=== PATIENT | female | born 1975 | race Caucasian/White ===

== ENCOUNTER 2022-10-23 09:14 | Outpatient (CLI) | payer BC, SELFPAY | END 2022-10-23 09:15 | disposition home or self-care (01) | PROVIDERS: PCP Family Medicine; Visit Provider Family Medicine | DX: Z00.00 Encounter for general adult medical examination without abnormal findings (principal); E66.01 Morbid (severe) obesity due to excess calories; R53.83 Other fatigue; R03.0 Elevated blood-pressure reading, without diagnosis of hypertension; R56.9 Unspecified convulsions; Z13.6 Encounter for screening for cardiovascular disorders | CPT/HCPCS: 80053; 80061; 82306; 84443 ==

== ENCOUNTER 2023-01-08 08:25 | Outpatient (CLI) | payer BC, SELFPAY | END 2023-01-08 08:26 | disposition home or self-care (01) | LOC: NFLDREF 15:25 | PROVIDERS: PCP Family Medicine; Referring Provider Family Medicine; Visit Provider Family Medicine | DX: I10 Essential (primary) hypertension (principal) | CPT/HCPCS: 80048 ==

== ENCOUNTER 2023-04-08 08:25 | Outpatient (CLI) | payer BC, SELFPAY | END 2023-04-08 08:26 | disposition home or self-care (01) | LOC: NFLDREF 04-09 11:51 | PROVIDERS: PCP Family Medicine; Referring Provider Family Medicine; Visit Provider Family Medicine | DX: I10 Essential (primary) hypertension (principal) | CPT/HCPCS: 80048 ==

== ENCOUNTER 2023-04-15 07:55 | Outpatient (CLI) | payer BC, SELFPAY ==
--- NOTE | 2023-04-15 08:15 | CRLHL7_ITS ---
For Patients: As a result of the Century Cures Act, medical imaging exams and procedure reports are released immediately into your electronic medical record. You may view this report before your referring provider. If you have questions, please contact your health care provider. BILATERAL SCREENING MAMMOGRAM WITH COMPUTER-AIDED DETECTION AND TOMOSYNTHESIS TECHNIQUE: CC and MLO views were obtained. These mammographic images have been obtained using full-field digital technique. These mammographic images were interpreted with the benefit of computer-aided detection. Breast tomosynthesis was used in this interpretation. COMPARISON FILM: None. This is a baseline study. FINDINGS: The breasts are almost entirely fatty. IMPRESSION: There is no radiographic evidence for malignancy. ASSESSMENT: BI-RADS Category 1: Negative RECOMMENDATION: Routine screening mammogram in 1 year. A lay language report of this examination will be provided to the patient. GURVINDER PERRY M.D. Diagnostic Radiologist [email or web address] AIDAN/faiza Transcribed: 04/17/2023, 6:[address]/Dictated by: Gurvinder Perry MD @ 04/17/2023 11:55:00 AM (Electronically Signed)
== END 2023-04-15 07:56 | disposition home or self-care (01) ==
LOC: MAMMO 07:56
PROVIDERS: PCP Family Medicine; Visit Provider Family Medicine
DX: Z12.31 Encounter for screening mammogram for malignant neoplasm of breast (principal)
CPT/HCPCS: 77063; 77067

== ENCOUNTER 2023-05-12 08:35 | Outpatient (CLI) | payer BC, SELFPAY ==
--- NOTE | 2023-05-12 10:50 | W.ANESCHARGE ---
Anesthesia Charges Start Date/Time Anesthesia Start Date: 05/12/23 Anesthesia Start Time: 10:20 Stop Date/Time Anesthesia Stop Date: 05/12/23 Anesthesia Stop Time: 10:49
== END 2023-05-12 08:36 | disposition home or self-care (01) ==
LOC: OP CLINIC 08:35
PROVIDERS: PCP Family Medicine; Visit Provider Surgery
DX: Z12.11 Encounter for screening for malignant neoplasm of colon (principal); K63.5 Polyp of colon
CPT/HCPCS: 45385; 811; 88305; J2704

== ENCOUNTER 2023-06-23 19:22 | Outpatient (CLI) | payer BC, SELFPAY ==
--- NOTE | 2023-07-01 09:11 | W.PM.SLEEP ---
Sleep Study Details Details Interpreting Provider: Aman Date of Sleep Study: 06/23/23 Sleep Study Details: STUDY TYPE:? Home unattended ? BMI:? 44.9 ORDERING PROVIDER:? Aman INDICATION:? Concerns about sleep apnea ? SLEEP SUMMARY:? Sleep time 517.5 minutes monitored RESPIRATORY SUMMARY:? AHI 4.1, supine 5.3, right lateral 2.3 Low oxygen 83 0.1% of study oxygen less than 90% Snoring 1.4% PERIODIC LIMB MOVEMENTS OF SLEEP:? Not recorded during home study CARDIAC:? range 46-102, mean 64.7 IMPRESSION:? The overall AHI is within normal limits although the patient has mild obstructive sleep apnea in the supine position. RECOMMENDATION: Should verify that the patient slept well during study. Recommend avoidance of supine sleep.
== END 2023-06-23 19:23 | disposition home or self-care (01) ==
LOC: SLEEP 19:23
PROVIDERS: PCP Family Medicine; Visit Provider Otolaryngology
DX: G47.19 Other hypersomnia (principal)
CPT/HCPCS: 95806

== ENCOUNTER 2023-08-26 07:45 | Outpatient (CLI) | payer BC, SELFPAY ==
--- OUTSIDE RECORDS SUMMARY | 2023-08-26 07:47 | XMS_ITS | Referral Summary ---
Author Name Unknown Organization [facility] Address [address] [place] [address] Care Team Providers Care Coal Chemist Name Role Phone Edgar Mina MD Primary Care Provider [phone] Allergies No known active allergies Medications Medication Sig Dispensed Refills Start Date End Date Status FLINTSTONES COMPLETE OR CHEW two daily 0 08/26/2005 Active UNISOM OR 1 TABLET AT BEDTIME NEEDED 0 Active RIBOFLAVIN 50 MG OR CAPS 1/2 tab daily at hs 0 Active TYLENOL 325 MG OR TABS 2 TABLETS EVERY 4 HOURS NEEDED 0 Active SALINE AERO as directed. 0 Active Active Problems Problem Noted Date Diagnosed Date Carpal tunnel syndrome 12/23/2005 Depressive disorder, not elsewhere classified Supervision of other high-risk 006 Overview: Problem list name updated by automated process. Provider to review Vaginitis and vulvovaginitis 09/26/2005 Overview: Problem list name updated by automated process. Provider to review Obesity 09/26/2005 Overview: Problem list name updated by automated process. Provider to review Exercise-induced asthma Overview: Dx as teenager. Never used inhalers. Problem list name updated by automated process. Provider to review Rheumatoid arthritis Overview: Problem list name updated by automated process. Provider to review Migraine Overview: Problem list name updated by automated process. Provider to review Immunizations Name Administration Dates Next Due COVID-19 MONOVALENT 12+ (Pfizer) 10/23/2020,09/05 Social History Tobacco Use Types Packs/Day Years Used Date Smoking Tobacco: Never Alcohol Use Standard Drinks/Week Comments Yes 0 (1 standard drink = 0.6 oz pure alcohol) 2 per week before pg. None since knows pg. Adolescent Education Answer Date Record ed Getting School Help Needed Not on file 04/22 Sex and Gender Information Value Date Recorded Sex Assigned at Not on file Gender Identity Female 09/25/2020 2:29 PM CDT Sexual Orientation Not on file Last Filed Vital Signs Vital Sign Reading Time Taken Comments Blood Pressure 131/91 05/25/2018 2:53 PM ENVIRONMENTAL ANALYST Pulse 103 05/25/2018 11:16 AM ENVIRONMENTAL ANALYST Temperature 36.7 ??C (98.1 ??F) 05/25/2018 11:[address] Respiratory Rate 16 05/25/2018 2:53 PM ENVIRONMENTAL ANALYST Oxygen Saturation 97% 05/25/2018 2:53 PM ENVIRONMENTAL ANALYST Inhaled Oxygen Concentration - - Weight 108.4 kg (239 lb) 01/20/2006 9:00 AM CDT Height 170.2 cm (5' 7) 11/25/2005 8:45 AM CDT Body Mass Index 37.43 11/25/2005 8:45 AM CDT Plan of Treatment Not on file Care Teams Coal Chemist Relationship Specialty Start Date End Date Edgar Mina MD PCP - General Family Medicine - Sports Medicine 05/25/18
--- OUTSIDE RECORDS SUMMARY | 2023-08-26 07:47 | XMS_ITS | Clinical Summary ---
Author Name Unknown Organization [facility] Address [address], [place] [address] Care Team Providers Care Electronics Manufacturer Name Role Phone Irina Callahan MD Primary Care Provider [phone] Source Comments You are receiving this document as you are listed as the primary care provider,follow-up provider, or the patient has been referred to you for consultation.This is in compliance with the Medicare and[facility] EHR Incentive Program,which states Providers who transition their patient to another setting of careor provider of care or refers their patient to another provider of care shouldprovide summary care record for each transition of care or referral. [facility] Medications Medication Sig Dispensed Refills Start Date End Date Status MULTIPLE VITAMIN OR None Entered Act debra ergocalciferol (VITAMIN D, ERGOCALCIFEROL,) 68409 UNIT capsule Take 1 Cap by mouth two times a week. 24 Cap prn 11/05/2011 Active levonorgest-eth estrad 91-Day (SEASONALE) 0.15-0.03 MG tablet Take 1 Tab by mouth daily. 91 Tab 5 03/20/2016 Active cyclobenzaprine (FLEXERIL) 10 MG tablet Take 1 Tab by mouth three times a day as needed for Muscle Spasms. 30 Tab 3 08/13/2016 Active fluticasone (FLONASE) 50 MCG/ACT nasal solution PLACE 2 SPRAYS INTO BOTH NOSTRILS DAILY NEEDED 48 g 3 09/20/2016 Active acetaminophen 500 MG capsuleIndications: Dysmenorrhea Take 1-2 Caps by mouth every 6 hours as needed for Pain. Maximum acetaminophen dose is 4000 mg in 24 hours 10/14/2016 Active Active Problems Problem Noted Date Diagnosed Date Uterus, adenomyosis 09/17/2016 Nasal congestion 03/20/2016 Pelvic pain in female 03/20/2016 Screening for malignant neoplasm of cervix 11/18 Overview: 2010 NILM 2014 NILM, HPV negative Plan: Co-test 11/2019 [facility] Menstrual migraine 11/06/2011 Vitamin D deficiency 08/10/2010 Overview: In the 9 range in 08/2010. PMS (premenstrual syndrome) 08/08/2010 Overview: Anger Obesity 10/18/2008 Resolved Problems Problem Noted Date Diagnosed Date Resolved Date Depression, major, recurrent , in complete remission 11/06/2011 11/11/2014 Major depressive disorder, s raf episode, in remission 10/20/2008 11/06/2011 Overview: [facility] Encounter for supervision of normal in multigravida 07/24/2007 10/18/2008 Immunizations Name Administration Dates Next Due Flu Vac (3+ yrs) 08/08/2010 Influenza IIV4 (Quadrivalent) 0.5mL (13472) 03/07 Tdap 10/18/2008 Family History Medical History Relation Name Comments Anesthesia Reaction Mother Anxiety Mother Cataract Mother Coronary Artery Disease Mother Depression Mother Diabetes, Type II Mother on meds Hypertension Mother Obesity Mother Thyroid Disorder Mother Coronary Artery Disease Maternal Grandfather Cancer, Breast Maternal Grandmother Cancer, Colon Other 1 aunt Cystic Fibrosis Other 2 uncle Cancer, Breast Paternal Grandmother Relation Name Status Comments Father Alive not in contact Mother (Age 67) ?heart Brother 1 Alive half Brother 2 Alive half Maternal Grandfather Maternal Grandmother Other 1 Other 2 Paternal Grandfather Paternal Grandmother Sister Alive half Son 1 Alive Son 2 Alive Social History Tobacco Use Types Packs/Day Years Used Date Smoking Tobacco: Never Smokeless Tobacco: Never Tobacco Cessation:Counseling Given: Yes Alcohol Use Standard Drinks/Week Comments Yes 0 (1 standard drink = 0.6 oz pur e alcohol) social Sex and Gender Information Value Date Recorded Sex Assigned at Not on file Gender Identity Not on file Sexual Orientation Not on file Last Filed Vital Signs Vital Sign Reading Time Taken Comments Blood Pressure 131/89 10/14/2016 10:49 AM CDT Pulse 79 10/14/2016 10:49 AM CDT Temperature 37.3 ??C (99.1 ??F) 03/20/2016 2:48 PM CD T Respiratory Rate 16 07/31/2016 9:16 AM DISPATCHER AUTOMOBILE RENTAL Oxygen Saturation - - Inhaled Oxygen Concentration - - Weight 113 kg (249 lb 3.2 oz) 10/14/2016 10:49 A M CDT Height 169.5 cm (5' 6.75) 03/20/2016 2:48 PM CD T Body Mass Index 39.32 03/20/2016 2:48 PM CDT Plan of Treatment Health Maintenance Due Date Last Done Comments Colon Cancer Screening Plan Due 1975 Hep C Screening (Preventive Services) 1975 Mammogram 12/06/2015 12/05/2014 Adult Preventive Visit 03/20/2017 6, 11/11/2014, 11/01/2011, Additional history exists Cholesterol 2018 11/01/2011, 08/08/2010 DTaP/Tdap/Td (2 - Tdap) 10/18/2018 10/18/2008 Cervical Cancer Screening 11/12/20192014, 08/08/2010, 02/18/2007 Zoster/Shingles (1 of 2) 2023 COVID-19 Vaccine ( season) 2023 10/02/2020 Influenza (#1) 2023 04/15/2019, 08/2017, 03/19/2018, Additional history exists HIV Screening (Preventive Services) Completed 02/18/2007 HepA Aged Out No longer eligi ble based on patient's age to complete this topic Hib Aged Out No longer eligi ble based on patient's age to complete this topic IPV (Polio) Aged Out No longer eligi ble based on patient's age to complete this topic MCV4 Aged Out No longer eligi ble based on patient's age to complete this topic Pneumococcal Aged Out No longer eligi ble based on patient's age to complete this topic Procedures Procedure Name Priority Date/Time Associated Diagnosis Comments MM MAMMOGRAM SCREENING BILAT W CAD Routine 12/05/2014 1:45 PM CDT Screening for breast cancer PAP TEST, ROUTINE Routine 11/11/2014 9:4 1 AM CDT Screening for cervical cancer LIPID PANEL & DIRECT LDL (IF NEEDED) Routine 11/01/2011 8:48 AM CDT Screening for lipoid disorders HIV ANTIBODY Routine 02/18/2007 Supervision of Normal from Last 3 Months or Most Recently Relevant to Health Maintenance Results * MAMMOGRAM SCREENING BILAT (12/05/2014 1:45 PM CDT) Anatomical Region Laterality Modality Breast Bilateral Mammography Narrative 12/06/2014 3:15 PM CDT BILATERAL FULL FIELD DIGITAL SCREENING MAMMOGRAM Performed on 12/05/2014 Comparison: None. Baseline. Findings: The breasts have scattered fibroglandular densities. There is no radiographic evidence of malignancy.This study was evaluated with the assistance of Computer-Aided Detection. ??Repeat routine screening mammogram in one year is recommended. ACR BI-RADS Category 1: Negative Irina Callahan MD RAD NEHA * PAP TEST, ROUTINE (11/11/2014 9:41 AM CDT) Cytology, Pap (NOTE) Specialty Person Cytology Report Patient Name: HARI QUINTANILLA Taken: 11/11/2014 Received: 11/14/2014 Reported: 11/17/2014 Physician(s): IRINA CALLAHAN ([id number]) ?Source of Specimen Pap Test, Routine Cervical/Endocervi jeremy: ?Specimen Adequacy ?Satisfactory for evaluation. ??Endocervical component present. ? Final Cytologic Interpretation/Res ult NEGATIVE FOR INTRAEPITHELIAL LESION OR MALIGNANCY (NILM) ?? Electronically Signed Out By OFELIA Davila (ASCP) Zenobia Templeton, ??CT (ASCP) OFELIA Davila (ASCP) ? Pap Smear History Date of Last Menstrual Period: No LMP recorded ?? Microscopic Description Microscopic examination is performed. [facility] Department of Pathology [address] [place] [address] ??[id number] [facility] 11/11/2014 9:41 AM CDT 11/14/2014 7:25 PM CDT Irina Callahan MD LAB_1 Performing Organization Address City/[facility]/ZIP Co de Phone Number [facility] [phone] * (ABNORMAL) LIPID PANEL AND DIRECT LDL(IF NEEDED) (11/01/2011 8:48 AM CDT) Cholesterol 204(H) 0 - 199 mg/dl [facility] Triglyceride 155(H) 0 - 149 mg/dl COUNTS INCLUDE [facility] AT [facility] HDL 47 >40 mg/dl COUNTS INCLUDE 234 [facility] AT THE [facility] LDL, Calc. 126 0 - 129 mg/dl COUNTS INCLUDE 234 [facility] AT THE [facility] Non HDL Chol, Calc 157 mg/dl COUNTS INCLUDE 234 [facility] AT THE [facility] Comment:Non HDLC goal is 30 mg/dl above the patient's desired LDLC goal. Hours Fasting 12 hours COUNTS INCLUDE 234 [facility] AT [facility] 11/01/2011 8:48 AM CDT 11/01/2011 8:53 AM CDT Irina Callahan MD LAB_1 Performing Organization Address [facility] de Phone Number COUNTS INCLUDE 234 B[facility]S AT THE [facility] [address] [id number] * HIV ANTIBODY (02/18/2007) HIV 1/2 Antibody Non-Reacti ve Comment:[facility] 02/18/2007 Irina Callahan MD LAB_1 from Last 3 Months or Most Recently Relevant to Health Maintenance Care Teams Electronics Manufacturer Relationship Specialty Start Date End Date Irina Callahan MD [address] [place] [address] PCP - General 07/17/07
--- OUTSIDE RECORDS SUMMARY | 2023-08-26 07:47 | XMS_ITS | Encounter Summary ---
Author Name Unknown Organization [place] [facility] Address [address] [place] [address] Care Team Providers Care Pad Assembler Name Role Phone Edgar Mina MD Primary Care Provider [phone] Encounter Details Date Type Department Care Team (Late st Contact Info) Description 10/24/2020 Documentation Only INTERFACED REPORT Unknown, Provider Social History Tobacco Use Types Packs/Day Years Used Date Smoking Tobacco: Never Alcohol Use Standard Drinks/Week Comments Yes 0 (1 standard drink = 0.6 oz pure alcohol) 2 per week before pg. None since knows pg. Comments Yes Sex and Gender Information Value Date Recorded Sex Assigned at Not on file Gender Identity Female 09/25/2020 2:29 PM CDT Sexual Orientation Not on file documented as of this encounter Plan of Treatment Not on file documented as of this encounter Visit Diagnoses Not on filedocumented in this encounter Care Teams Pad Assembler Relationship Specialty Start Date End Date Edgar Mina MD PCP - General Family Medicine - Sports Medicine 05/25/18 documented as of this encounter
--- OUTSIDE RECORDS SUMMARY | 2023-08-26 07:47 | XMS_ITS | Encounter Summary ---
Author Name Unknown Organization [facility] Address [address] [place] [address] Care Team Providers Care Circus Performer Name Role Phone Edgar Mina MD Primary Care Provider [phone] Encounter Details Date Type Department Care Team (Late st Contact Info) Description 10/03/2020 Documentation Only INTERFACED REPORT Unknown, Provider Social [...] on filedocumented in this encounter Care Teams Circus Performer Relationship Specialty Start Date End Date Edgar Mina MD PCP - General Family Medicine - Sports Medicine 05/25/18 documented as of this encounter
--- OUTSIDE RECORDS SUMMARY | 2023-08-26 07:47 | XMS_ITS | Encounter Summary ---
Author Name Unknown Organization [facility] Address [address] [place] [address] Care Team Providers Care Machine Maintenance Repairer Name Role Phone Irina Callahan MD Primary Care Provider [phone] Encounter Details Date Type Department Care Team (Late st Contact Info) Description 11/05/2016 Scanned History External to [facility] Transferred Record, Provider TRANSFERRED RECORDS Social History Tobacco Use Types Packs/Day Years Used Date Smoking Tobacco: Never Smokeless Tobacco: Never Alcohol Use Standard Drinks/Week Comments Yes 0 (1 standard drink = 0.6 oz pur e alcohol) social Sex and Gender Information Value Date Recorded Sex Assigned at Not on file Gender Identity Not on file Sexual Orientation Not on file documented as of this encounter Plan of Treatment Not on file documented as of this encounter Visit Diagnoses Not on filedocumented in this encounter Additional Health Concerns Infection Onset Date Last Indicated Resolved Time R/O COVID19 12/15/2019 12/15/2019 12/16/2019 9:34 AM CDT documented as of this encounter Care Teams Machine Maintenance Repairer Relationship Specialty Start Date End Date Irina Callahan MD [address] [place] [address] PCP - General 07/17/07 documented as of this encounter
--- OUTSIDE RECORDS SUMMARY | 2023-08-26 07:47 | XMS_ITS | Clinical Summary ---
Author Name Unknown Organization [facility] [place] Address [address] [place] [address] Care Team Providers Care Pressure Sealer And Tester Name Role Phone Edgar Mina MD Primary Care Provider [phone] Allergies No known active allergies Medications Medication [...] Next Due COVID-19 MONOVALENT 12+ (Pfizer) 10/23/2020,09/05 Family History Medical History Relation Comments C.A.D. Maternal Grandfather of [place] Cardiovascular Maternal Grandfather Heart Disease Maternal Grandfather of [place] Depression Maternal Grandmother Alcohol/Drug Maternal Uncle ETOH Anesthesia Reaction Mother Complication s after cataract surgery with anesthesia Arthritis Mother Rheumatoid arthr itis. Depression Mother Has been on Proz ac in the past. Diabetes Mother adult onset Obesity Mother Allergies Paternal Grandmother Relation Status Comments Brother 1 Alive Half-brother Brother 2 Alive Half-brother Father Alive Maternal Grandfather (Age 54) [place] Maternal Grandmother (Age 80's) care home for 10 years Maternal Uncle Mother Alive Paternal Grandmother Sister Alive Half-sister Social History Tobacco Use Types Packs/Day Years [...] Comments Blood Pressure 131/91 05/25/2018 2:53 PM MEDICAL GENETICIST Pulse 103 05/25/2018 11:16 AM MEDICAL GENETICIST Temperature 36.7 ??C (98.1 ??F) 05/25/2018 11:[address] Respiratory Rate 16 05/25/2018 2:53 PM MEDICAL GENETICIST Oxygen Saturation 97% 05/25/2018 2:53 PM MEDICAL GENETICIST Inhaled Oxygen Concentration - - Weight 108.4 kg (239 lb) 01/20/2006 9:00 AM CDT Height 170.2 cm (5' 7) 11/25/2005 8:45 AM CDT Body Mass Index 37.43 11/25/2005 8:45 AM CDT Plan of Treatment Health Maintenance Due Date Last Done Comments ADVANCE CARE PLANNING 1975 ANNUAL REVIEW OF HM ORDERS 1973 ASTHMA ACTION PLAN [address] ASTH[address] COLONOGRAPHY 1973 FIT 1973 FLEX SIG 1973 HEPATITIS B IMMUNIZATION (1 of 3 - 3-dose series) 1973 MAMMO SCREENING 1973 YEARLY PREVENTIVE VISIT 1973 sDNA (Cologuard) 1973 COLONOSCOPY 1983 COLORECTAL CANCER SCREENING 1983 HEPATITIS C SCREENING 1991 DTAP/TDAP/TD IMMUNIZATION (1 - Tdap) 1998 PAP 09/17/2008 09/17/2005 LIPID 2013 GLUCOSE 05/25/2021 05/25/2018, 03/23/2007 ZOSTER IMMUNIZATION (1 of 2) 2023 COVID-19 Vaccine (3 - 2022- season) 2023 10/23/2020, 10/02/2020 INFLUENZA VACCINE (#1) 2023 8, 03/20/2016, 03/10/2015, Additional history exists PHQ-2 (once per calendar year) 2023 HIV SCREENING Completed 08/26/2005 HPV IMMUNIZATION Aged Out No longer e ligible based on patient's age to complete this topic IPV IMMUNIZATION Aged Out No longer e ligible based on patient's age to complete this topic MENINGITIS IMMUNIZATION Aged Out No l onger eligible based on patient's age to complete this topic Pneumococcal Vaccine: Pediatrics (0 to 5 Years) and At-Risk Patients (6 to 64 Years) Aged Out No longer eligible based on patient's age to complete this topic RSV MONOCLONAL ANTIBODY Aged Out No l onger eligible based on patient's age to complete this topic Care Teams Pressure Sealer And Tester Relationship Specialty Start Date End Date Edgar Mina MD PCP - General Family Medicine - Sports Medicine 05/25/18
--- OUTSIDE RECORDS SUMMARY | 2023-08-26 07:47 | XMS_ITS | Clinical Summary ---
Author Name Unknown Organization [facility] Address [place], [place] [address] Care Team Providers Care Bottom Polisher Name Role Phone Edgar Mina MD Primary Care Provider [phone] Allergies No known active allergies Medications Medication Sig Dispensed Refills Start Date End Date Status fluticasone, 50 mcg per actuation, nasal (FLONASE) 50 mcg/actuation nasal spray INHALE 1 SPRAY INTO EACH NOSTRIL ONCE DAILY 1 Bottle 0 11/16/2011 Active meclizine (ANTIVERT) 25 mg tabletIndications:Dizzi ness,Vertigo Take 1 tablet by mouth 3 times daily if needed. 30 tablet 0 05/19/2018 Active ondansetron (ZOFRAN ODT) 4 mg disintegrating tabletIndications:Nause a Place 1 tablet on the tongue every 8 hours if needed for Nausea/Vomiting . 20 tablet 2 05/19/2018 Active Active Problems Problem Noted Date Diagnosed Date BPPV (benign paroxysmal positional vertigo) 12/07 Overview: Saw ENT December 2018: Supervision of other normal 03/30/2007 Immunizations Name Administration Dates Next Due Influenza, IIV3 (Age >=3 years) 08/08/2010,05/13 Influenza, IIV4 03/20/2016,03/10/2015 Influenza,CCIIV4 PRESERV FREE 03/19/2018 Tdap 10/18/2008 Family History Medical History Relation Name Comments Heart Disease Maternal Grandfather Stroke Maternal Grandfather Arthritis Maternal Grandmother Asthma Mother Diabetes Mother Relation Name Status Comments Father Other Maternal Grandfather Maternal Grandmother Mother Alive Paternal Grandfather Paternal Grandmother Social History Tobacco Use Types Packs/Day Years Used Date Smoking Tobacco: Never Smokeless Tobacco: Never Comments:Pt's partner has re cently quit smoking. Alcohol Use Standard Drinks/Week Comments No 0 (1 standard drink = 0.6 oz pur e alcohol) Sex and Gender Information Value Date Recorded Sex Assigned at Not on file Gender Identity Not on file Sexual Orientation Not on file Obstetrics History Para Term AB IAB SAB Ectopic Multiple Livin g Live Births 1 1 1 0 0 0 0 0 1 1 Date Outcome GA Total Labor Labor/2nd/3rd Weight Sex Delivery Anes PTL Jessie A1 A5 Name Cl in 04/01 Term 38w 0d 14h 00m/ 3.54 kg (7 lb 13 oz) M Vag Aster ng Freedom Comments:Post I nfection Last Filed Vital Signs Vital Sign Reading Time Taken Comments Blood Pressure 124/83 05/19/2018 2:41 PM FOUNTAIN WORKER Pulse 101 05/19/2018 2:41 PM FOUNTAIN WORKER Temperature 37.6 ??C (99.6 ??F) 05/19/2018 2:41 PM CS T Respiratory Rate 24 11/01/2010 9:18 AM CDT Oxygen Saturation 99% 05/19/2018 2:41 PM FOUNTAIN WORKER Inhaled Oxygen Concentration - - Weight 114.4 kg (252 lb 3.2 oz) 05/19/2018 2:41 PM FOUNTAIN WORKER Height 169 cm (5' 6.54) 05/19/2018 2:41 PM FOUNTAIN WORKER Body Mass Index 40.05 05/19/2018 2:41 PM FOUNTAIN WORKER Plan of Treatment Health Maintenance Due Date Last Done Comments Hepatitis C screening for age 18-79 1991 Pap test for age 21-65 02/18/2010 02/18/2007 Colonoscopy through age 75 2018 Lipids for age 45-75 2018 Mammogram for age 45-75 2018 Depression screening for age 12+ 06/25/2018 06/25/2017, 09/05/2015 Tetanus booster 10/18/2018 10/18/2008 BMI (ht and wt on same day) for age 18+ 05/19/2019 05/19/2018, 06/25/2017, 09/05/2015 Zoster (shingles) series for age 50+ (1 of 2) 2023 COVID-19 vaccine series (3 - 2023-24 season) 2023 10/23/2020, 10/02/2020 Influenza for age 50-64 03/07/2023 03/19/20 18, 03/20/2016, 03/10/2015, Additional history exists HIV for age 15-65 Completed 02/18/2007 Tdap Completed 10/18/2008 Pneumococcal series for age 6-64 Aged Out No longer eligible based on patient's age to complete this topic Care Teams Bottom Polisher Relationship Specialty Start Date End Date Edgar Mina MD PCP - General 04/13/09
--- NOTE | 2023-08-26 08:00 | CT_ITS ---
Final Report Patient: HARI DOYLE Facility:?[facility] Patient ID:?[id number] Site Patient ID:?[id number]. Site :?[id number] Study:?CT Sinus WITHOUT-08/26/2023 8:13:47 AM Ordering Physician:?RITESH Final Report: Indication: CHRONIC SINUSITIS Technique: Performed without IV contrast Comparison: None available Findings: Frontal sinuses: Normal right frontal sinus. 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 Ethmoid sinuses: Clear. Maxillary sinuses: Minimal mucosal thickening is present within the left maxillary sinus. Clear right maxillary sinus. The maxillary sinus drainage pathways are patent on both sides. Sphenoid sinuses: Clear, including both sphenoethmoidal recesses. Nasal Cavity: Leftward curvature of the nasal septum. Atrophied nasal turbinate mucosa. No TMJ abnormalities identified. The visualized portions of the orbits, intracranial contents and upper soft tissue neck are grossly negative. Impression: 1. Minimal left maxillary sinus disease. 2. Patency of the sinus drainage pathways. 3. Atrophied nasal turbinate mucosa. No nasal polyps. 4. Leftward curvature nasal septum. Please note that all CT scans at this facility use dose modulation, iterative reconstruction, and/or weight-based dosing when appropriate to reduce radiation dose to as low as reasonably achievable. Dictated by Gurvinder Escobar MD @ 08/26/2023 8:31:10 AM (Electronic Signature)
== END 2023-08-26 07:46 | disposition home or self-care (01) ==
PROVIDERS: PCP Family Medicine; Visit Provider Otolaryngology
DX: J32.9 Chronic sinusitis, unspecified (principal); J32.0 Chronic maxillary sinusitis; J34.2 Deviated nasal septum
CPT/HCPCS: 70486

== ENCOUNTER 2023-12-29 07:22 | Outpatient (CLI) | payer BC, SELFPAY ==
--- OUTSIDE RECORDS SUMMARY | 2023-12-31 04:38 | XMS_ITS | Referral Summary ---
Author Organization [facility] Address [address] [place] [address] Care Team Providers Care Contract Recruiter Name Role Phone Edgar Mina MD Primary Care Provider [phone] Allergies No known active allergies Medications Medication Sig Dispensed Refills Start Date End Date Status FLINTSTONES COMPLETE OR CHEW two daily 08/26/2005 Active UNISOM OR 1 TABLET AT BEDTIME NEEDED Active RIBOFLAVIN 50 MG OR CAPS 1/2 tab daily at hs Active TYLENOL 325 MG OR TABS 2 TABLETS EVERY 4 HOURS NEEDED Active SALINE AERO as directed. Active Active Problems Problem Noted Date Diagnosed [...] Administration Dates Next Due COVID-19 MONOVALENT 12+ ([employer] 10/23/2020,09/05 Social History Tobacco Use Types Packs/Day [...] Comments Blood Pressure 131/91 05/25/2018 2:53 PM PEARL MAKER Pulse 103 05/25/2018 11:16 AM PEARL MAKER Temperature 36.7 ??C (98.1 ??F) 05/25/2018 11:[address] Respiratory Rate 16 05/25/2018 2:53 PM PEARL MAKER Oxygen Saturation 97% 05/25/2018 2:53 PM PEARL MAKER Inhaled Oxygen Concentration - - Weight 108.4 kg (239 lb) 01/20/2006 9:00 AM CDT Height 170.2 cm (5' 7) 11/25/2005 8:45 AM CDT Body Mass Index 37.43 11/25/2005 8:45 AM CDT Plan of Treatment Not on file Procedures Procedure Name Priority Date/Time Associated Diagnosis Comments BASIC METABOLIC PANEL STAT 05/25/2018 11:19 AM PEARL MAKER HCL GLUCOSE; 1 HR POST Routine 01/14/2006 9:45 AM CDT Supervis Other Normal Preg TRIPLE SCREEN Routine 10/31/2005 8:32 AM CDT Suprf High Risk Nec HCL PAP THIN LAYER SCREEN Routine 09/17/2005 12:00 AM PEARL MAKER Suprf High Risk Nec HCL HIV 1 & 2 ANTIBODY Routine 08/26/2005 9:22 AM PEARL MAKER Supervis Normal 1st Preg from Last 3 Months or Most Recently Relevant to Health Maintenance Results * Basic metabolic panel (05/25/2018 11:19 AM PEARL MAKER) Sodium 137 133 - 144 mmol/L 05/25/2018 11:45 AM [facility] Potassium 4.2 3.4 - 5.3 mmol/L 05/25/2018 11:45 AM [facility] Chloride 105 94 - 109 mmol/L 05/25/2018 11:45 AM [facility] Carbon Dioxide 27 20 - 32 mmol/L 05/25/2018 11:45 AM [facility] Anion Gap 5 3 - 14 mmol/L 05/25/2018 11:45 AM [facility] Glucose 95 70 - 99 mg/dL 05/25/2018 11:45 AM [facility] Urea Nitrogen 17 7 - 30 mg/dL 05/25/2018 11:45 AM [facility] Creatinine 0.82 0.52 - 1.04 mg/dL 05/25/2018 11:45 AM [facility] GFR Estimate 75 >60 mL/min/1.7 m2 05/25/2018 11:45 AM [facility] Comment:Non GFR Calc GFR Estimate If Black >90 >60 mL/min/1.7 m2 05/25/2018 11:45 AM [facility] Comment: GFR Calc Calcium 9.1 8.5 - 10.1 mg/dL 05/25/2018 11:45 AM [facility] Blood specimen (specimen) 05/25/2018 11:19 AM PEARL MAKER 05/25/2018 11:20 AM PEARL MAKER Aarti Chua MD LAB - BLOOD [facility] [address] [phone] * GLUCOSE; 1 HR POST (01/14/2006 9:45 AM CDT) Glu Gest Screen 1hr 50g 128 60 - 140 mg/dL [facility] 01/14/2006 9:45 AM CDT 01/14/2006 9:47 AM CDT Latrice Rodriguez MD LABORATORY [facility] * TRIPLE SCREEN (10/31/2005 8:32 AM CDT) Pt Date of 2006 [facility] Due Date [facility]/20/2006 [facility] Dating Method [facility] Last Mens Period 07/14/2005 [facility] Twins NO [facility] Race of Mother [facility]abetic at Conception NO [facility] Fam History Of NTD NO [facility] Doctor's Name CEM RODRIGUEZ [facility] Alpha Feto Protein 30 [facility] Comment:Unit: ng/mL MoM for AFP 1.43 [facility] BHCG 67430 [facility] Comment:Unit: IU/L MoM For HCG 0.96 [facility] Estriol 0.89 [facility] Comment:Unit: ng/mL MoM uE3 1.27 [facility] AFP Interpretation NORMAL (Note) Maternal Serum AFP/hCG/uE3 (Triple) Screen ?NORMAL SCREEN Risks ? Pre-test ?Post-test ? (Cutoff) Open NTD ?1 in 900 ?1 in 4300 Down Syndrome ?? 1 in 430 ?1 in 3400 ? (1 in 190) Trisomy 18 ?1 in 1700 ?<1 in 59719 ?(1 in 100) Assuming the patient information listed is correct, this maternal serum screen is within normal limits. ??The interpretation is based on maternal age, gestational age, maternal weight, the presence or absence of insulin requiring maternal diabetes, maternal race, and number of fetuses, if known. This test is performed pursuant to a licensing agreement with [employer]. [facility] Specimen Iteration First [facility] Maternal Age 33.2 ISSA [facility] Comment:Unit: yr Dating LNMP [facility] Estimated Due Date [facility] Gest Age Exact 15.57 [facility] Comment:Unit: Weeks Patient Weight [facility] Comment:Unit: lb Insulin Diabetic No [facility] [place] Fam History of NTD No [facility] Maternal Race WHITE [facility] Num of Fetuses 1.0 (Note) The above 17 tests were performed at: [employer], [address] [place] [address] ??[id number] ??[phone] ??[email or web address] [facility] 10/31/2005 8:32 AM CDT 10/31/2005 8:35 AM CDT Latrice Rodriguez MD LABORATORY [facility] * Pap Smear [G0123.000] (09/17/2005 12:00 AM PEARL MAKER) PAP RAHUL Del Toro Report Patient Name: HARI OLIVARES MR#: [id number] Specimen #: [id number] Collected: 09/17/2005 Received: 09/17/2005 Reported: 09/19/2005 11:13 Ordering Phy(s): LATRICE RODRIGUEZ SPECIMEN/STAIN PROCESS: Pap thin layer prep screening ([employer]) ? Pap-Cyto x 1, Reflex HPV x 1 SOURCE: Cervical, endocervical Pap thin layer prep screening ([employer]) SPECIMEN ADEQUACY: Satisfactory for evaluation. -Transitional zone component absent. CYTOLOGIC INTERPRETATION: Negative for Intraepithelial Lesion or Malignancy ? Organism(s): -Fungal organisms morphologically consistent with Kristel spp. Electronically signed out by: OFELIA Chandler (ASCP) Processed and screened at [facility] CLINICAL HISTORY: LMP: 07/14/05 , TESTING LAB LOCATION: [facility], [address] [place] [address] ??[phone] COLLECTION SITE: Client: ??[facility] Location: ZMFP (P) COPATH 09/17/2005 09/17/2005 3:0 8 PM PEARL MAKER Latrice Rodriguez MD LABORATORY COPATH * HIV-1/HIV-2 AB, EIA, W/WB RFLX [41258.000] (08/26/2005 9:22 AM PEARL MAKER) HIV 1&2 Antibody Negative NEG [facility] 08/26/2005 9:22 AM PEARL MAKER 08/26/2005 9:27 AM PEARL MAKER Latrice Rodriguez MD LABORATORY [facility] from Last 3 Months or Most Recently Relevant to Health Maintenance Care Teams Contract Recruiter Relationship Specialty Start Date End Date Edgar Mina MD PCP - General Family Medicine - Sports Medicine 05/25/18
--- OUTSIDE RECORDS SUMMARY | 2023-12-31 04:38 | XMS_ITS | Encounter Summary ---
Author Organization [facility] Address [address] [place] [address] Care Team Providers Care Twine Winder Name Role Phone Edgar Mina MD Primary Care Provider Encounter Details Date Type Department Care Team [...] on filedocumented in this encounter Care Teams Twine Winder Relationship Specialty Start Date End Date Edgar Mina MD PCP - General Family Medicine - Sports Medicine 05/25/18 documented as of this encounter
--- OUTSIDE RECORDS SUMMARY | 2023-12-31 04:38 | XMS_ITS | Clinical Summary ---
Author Organization [facility] Address [address], [place] [address] Care Team Providers Care Representative Name Role Phone Irina Callahan MD Primary Care Provider Source Comments You are receiving this document as you are listed as the primary care provider,follow-up provider, or the patient has been referred to you for consultation.This is in compliance with the Medicare andMedicaid EHR Incentive Program,which states Providers who transition their patient to another setting of careor provider of care or refers their patient to another provider of care shouldprovide summary care record for each transition of care or referral. [facility] Medications Medication Sig Dispensed Refills Start Date End Date Status MULTIPLE VITAMIN OR None Entered Act debra ergocalciferol (VITAMIN D, ERGOCALCIFEROL,) 19588 UNIT capsule Take 1 Cap by mouth [...] neoplasm of cervix 11/18 Overview: 2010 NILM 2015 NILM, HPV negative Plan: [facility] [...] (3+ yrs) 08/08/2010 Influenza IIV4 (Quadrivalent) 0.5mL (04978) 03/07 Tdap 10/18/2008 Family History Medical History [...] T Respiratory Rate 16 07/31/2016 9:16 AM BOW STRING MAKER Oxygen Saturation - - Inhaled Oxygen Concentration [...] COVID-19 Vaccine ( season) 2023 10/02/2020 Influenza (Season Ended) 2024 019, 04/07/2018, 03/19/2018, Additional history exists HIV Screening (Preventive [...] (11/11/2014 9:41 AM CDT) Cytology, Pap (NOTE) Fire Control System Installer Cytology Report Patient Name: HARI QUINTANILLA Taken: 11/11/2014 Received: 11/14/2014 Reported: 11/17/2014 Physician(s): IRINA CALLAHAN ([id number]) ?Source of Specimen Pap Test, Routine Cervical/Endocervi jeremy: ?Specimen Adequacy ?Satisfactory for evaluation. ??Endocervical component present. ? Final Cytologic Interpretation/Res ult NEGATIVE FOR INTRAEPITHELIAL LESION OR MALIGNANCY (NILM) ?? Electronically Signed Out By OFELIA Davila (ASCP) Zenobia Templeton, ??CT (ASCP) OFELIA Davila (ASCP) ? Pap Smear History Date of Last Menstrual Period: No LMP recorded ?? Microscopic Description Microscopic examination is performed. [facility] Department of Pathology [address] [place] [address] ??[phone] [facility] 11/11/2014 9:41 AM CDT 11/14/2014 7:25 PM CDT Irina Callahan MD LAB_1 Performing Organization Address City/[facility]/ZIP Co de Phone Number [facility] [phone] * (ABNORMAL) LIPID PANEL AND DIRECT LDL(IF NEEDED) (11/01/2011 8:48 AM CDT) Cholesterol 204(H) 0 - 199 mg/dl [facility] Triglyceride 155(H) 0 - 149 mg/dl [facility] HDL 47 >40 mg/dl [facility] LDL, Calc. 126 0 - 129 mg/dl [facility] Non HDL Chol, Calc 157 mg/dl [facility] Comment:Non HDLC goal is 30 mg/dl above the patient's desired LDLC goal. Hours Fasting 12 hours [facility] 11/01/2011 8:48 AM CDT 11/01/2011 8:53 AM CDT Irina Callahan MD LAB_1 Performing Organization Address [facility] de Phone Number [facility] [address] [phone] * HIV ANTIBODY (02/18/2007) HIV 1/2 Antibody Non-Reacti ve Comment:[facility] 02/18/2007 Irina Callahan MD LAB_1 from Last 3 Months or Most Recently Relevant to Health Maintenance Care Teams Representative Relationship Specialty Start Date End Date Irina Callahan MD [address] [place] [address] PCP - General 07/17/07
--- OUTSIDE RECORDS SUMMARY | 2023-12-31 04:38 | XMS_ITS | Encounter Summary ---
Author Organization [facility] Address [address] [place] [address] Care Team Providers Care Apartment Locator Name Role Phone Edgar Mina MD Primary Care Provider [phone] Encounter Details Date Type Department Care Team [...] on filedocumented in this encounter Care Teams Apartment Locator Relationship Specialty Start Date End Date Edgar Mina MD PCP - General Family Medicine - Sports Medicine 05/25/18 documented as of this encounter
--- OUTSIDE RECORDS SUMMARY | 2023-12-31 04:38 | XMS_ITS | Clinical Summary ---
Author Organization [facility] Address [address] [place] [address] Care Team Providers Care Clothing Patternmaker Name Role Phone Edgar Mina MD Primary Care Provider [phone] Allergies No known active allergies Medications Medication [...] Administration Dates Next Due COVID-19 MONOVALENT 12+ ([employer]) 10/23/2020,09/05 Family History Medical History Relation Comments C.A.D. Maternal Grandfather of CT Cardiovascular Maternal Grandfather Heart Disease Maternal Grandfather of CT Depression Maternal Grandmother Alcohol/Drug Maternal Uncle ETOH Anesthesia Reaction Mother Complication s after cataract surgery with anesthesia Arthritis Mother Rheumatoid arthr itis. Depression Mother Has been on Proz ac in the past. Diabetes Mother adult onset Obesity Mother Allergies Paternal Grandmother Relation Status Comments Brother 1 Alive Half-brother Brother 2 Alive Half-brother Father Alive Maternal Grandfather (Age 54) [place] Maternal Grandmother (Age 80's) skilled nursing for 10 years Maternal Uncle Mother Alive [...] Comments Blood Pressure 131/91 05/25/2018 2:53 PM OFFICE ASSISTANT Pulse 103 05/25/2018 11:16 AM OFFICE ASSISTANT Temperature 36.7 ??C (98.1 ??F) 05/25/2018 11:[address] Respiratory Rate 16 05/25/2018 2:53 PM OFFICE ASSISTANT Oxygen Saturation 97% 05/25/2018 2:53 PM OFFICE ASSISTANT Inhaled Oxygen Concentration - - Weight 108.4 kg (239 lb) 01/20/2006 9:00 AM CDT Height 170.2 cm (5' 7) 11/25/2005 8:45 AM CDT Body Mass Index 37.43 11/25/2005 8:45 AM CDT Plan of Treatment Health Maintenance Due Date Last Done Comments ADVANCE CARE PLANNING 1975 ANNUAL REVIEW OF HM ORDERS [address] CT COLONOGRAPHY 1973 FIT 1973 FLEX SIG 1975 MAMMO SCREENING 1973 YEARLY PREVENTIVE VISIT 1973 sDNA (Cologuard) 1973 COLONOSCOPY 1983 COLORECTAL CANCER SCREENING 1983 HEPATITIS C SCREENING 1991 HEPATITIS B IMMUNIZATION (1 of 3 - 19+ 3-dose series) 01/17/1992 DTAP/TDAP/TD IMMUNIZATION (1 - Tdap) 1998 PAP 09/17/2008 09/17/2005 LIPID 2013 GLUCOSE 05/25/2021 05/25/2018, 03/23/2007 ZOSTER IMMUNIZATION (1 of 2) 2023 COVID-19 Vaccine (3 - season) 2023 10/23/2020, 10/02/2020 PHQ-2 (once per calendar year) 2023 INFLUENZA VACCINE (Season Ended) 2024 03/19/2018, 03/20/2016, 03/10/2015, Additional history exists HIV SCREENING Completed 08/26/2005 HPV IMMUNIZATION Aged [...] BASIC METABOLIC PANEL STAT 05/25/2018 11:19 AM OFFICE ASSISTANT HCL GLUCOSE; 1 HR POST Routine 01/14/2006 9:45 AM CDT Supervis Other Normal Preg TRIPLE SCREEN Routine 10/31/2005 8:32 AM CDT Suprf High Risk Nec HCL PAP THIN LAYER SCREEN Routine 09/17/2005 12:00 AM OFFICE ASSISTANT Suprf High Risk Nec HCL HIV 1 & 2 ANTIBODY Routine 08/26/2005 9:22 AM OFFICE ASSISTANT Supervis Normal 1st Preg from Last 3 Months or Most Recently Relevant to Health Maintenance Results * Basic metabolic panel (05/25/2018 11:19 AM OFFICE ASSISTANT) Sodium 137 133 - 144 mmol/L 05/25/2018 11:45 AM [facility] Potassium 4.2 3.4 - 5.3 mmol/L 05/25/2018 11:45 AM [facility] Chloride 105 94 - 109 mmol/L 05/25/2018 11:45 AM [facility] Carbon Dioxide 27 20 - 32 mmol/L 05/25/2018 11:45 AM [facility] Anion Gap 5 3 - 14 mmol/L 05/25/2018 11:45 AM [facility] Glucose 95 70 - 99 mg/dL 05/25/2018 11:45 AM [facility] Urea Nitrogen 17 7 - 30 mg/dL 05/25/2018 11:45 AM [facility] Creatinine 0.82 0.52 - 1.04 mg/dL 05/25/2018 11:45 AM [facility] GFR Estimate 75 >60 mL/min/1.7 m2 05/25/2018 11:45 AM [facility] Comment:Non GFR Calc GFR Estimate If Black >90 >60 mL/min/1.7 m2 05/25/2018 11:45 AM [facility] Comment: GFR Calc Calcium 9.1 8.5 - 10.1 mg/dL 05/25/2018 11:45 AM [facility] Blood specimen (specimen) 05/25/2018 11:19 AM [facility] 05/25/2018 11:20 AM [facility] Aarti Chua MD LAB - BLOOD KAL [facility] [address] [phone] * GLUCOSE; 1 HR POST (01/14/2006 9:45 AM CDT) Glu Gest Screen 1hr 50g 128 60 - 140 mg/dL [facility] 01/14/2006 9:45 AM CDT 01/14/2006 9:47 AM CDT Latrice Rodriguez MD LABORATORY [facility] * TRIPLE SCREEN (10/31/2005 8:32 AM CDT) Pt Date of 2006 FA [facility] Patient Weight 220 LBS [facility] Due Date 04/20/2006 [facility] Dating Method [facility] Last Mens Period 07/14/2005 FA [facility] Twins NO [facility] Race of Mother [facility] Diabetic at Conception NO [facility]am History Of NTD NO [facility] Doctor's Name CEM RODRIGUEZ [facility] Alpha Feto Protein 30 [facility] Comment:Unit: ng/mL MoM for AFP 1.43 [facility] BHCG 55946 [facility] Comment:Unit: IU/L MoM For HCG 0.96 [facility] Estriol 0.89 [facility] Comment:Unit: ng/mL MoM uE3 1.27 [facility] AFP Interpretation NORMAL (Note) Maternal Serum AFP/hCG/uE3 (Triple) Screen ?NORMAL SCREEN Risks ? Pre-test ?Post-test ? (Cutoff) Open NTD ?1 in 900 ?1 in 4300 Down Syndrome ?? 1 in 430 ?1 in 3400 ? (1 in 190) Trisomy 18 ?1 in 1700 ?<1 in [address] ?(1 in 100) Assuming the patient information listed is correct, this maternal serum screen is within normal limits. ??The interpretation is based on maternal age, gestational age, maternal weight, the presence or absence of insulin requiring maternal diabetes, maternal race, and number of fetuses, if known. This test is performed pursuant to a licensing agreement with [email or web address]. [facility] Specimen Iteration First [facility] Maternal Age 33.2 ISSA [facility] Comment:Unit: yr Dating LNMP [facility] Estimated Due Date [facility] Gest Age Exact 15.57 [facility] Comment[facility]Unit: Weeks Patient Weight 220 [facility] Comment:Unit: lb Insulin Diabetic No SHANNEN RVIEW [facility] Fam History of NTD No [facility] Maternal Race WHITE FAIRVI [facility] Num of Fetuses 1.0 (Note) The above 17 tests were performed at: [employer], [facility] [employer] [facility], [facility] ??[id number] ??[phone] ??[email or web address] [facility] 10/31/2005 8:32 AM CDT 10/31/2005 8:35 AM CDT Latrice Rodriguez MD LABORATORY [facility] * Pap Smear [G0123.000] (09/17/2005 12:00 AM OFFICE ASSISTANT) PAP RAHUL Del Toro Report Patient Name: HARI OLIVARES MR#: [id number] Specimen #: [id number] Collected: 09/17/2005 Received: 09/17/2005 Reported: 09/19/2005 11:13 [...] with Kristel spp. Electronically signed out by: Reva Raymond, [place] (ASCP) Processed and screened at [facility] CLINICAL HISTORY: LMP: 07/14/05 , TESTING LAB LOCATION: [facility], [address] [place] [address] ??[phone] COLLECTION SITE: Client: ??[facility] Location: ZMFP (P) COPATH 09/17/2005 09/17/2005 3:0 8 PM OFFICE ASSISTANT Latrice Rodriguez MD LABORATORY COPATH * HIV-1/HIV-2 AB, EIA, W/WB RFLX [[id number]] (08/26/2005 9:22 AM OFFICE ASSISTANT) HIV 1&2 Antibody Negative NEG [facility] 08/26/2005 9:22 AM OFFICE ASSISTANT 08/26/2005 9:27 AM OFFICE ASSISTANT Latrice Rodriguez MD LABORATORY [facility] from Last 3 Months or Most Recently Relevant to Health Maintenance Care Teams Clothing Patternmaker Relationship Specialty Start Date End Date Edgar Mina MD PCP - General Family Medicine - Sports Medicine 05/25/18
--- OUTSIDE RECORDS SUMMARY | 2023-12-31 04:39 | XMS_ITS | Clinical Summary ---
Author Organization [facility] [employer] Address [place], [place] [address] Care Team Providers Care Building Principal Name Role Phone Edgar Mina MD Primary Care Provider [phone] Allergies No known active allergies Medications Medication Sig Dispensed Refills Start Date End Date Status fluticasone, 50 mcg per actuation, nasal (FLONASE) 50 mcg/actuation nasal spray INHALE 1 SPRAY INTO EACH NOSTRIL ONCE DAILY 1 Bottle 0 11/16/2011 Active meclizine (ANTIVERT) 25 mg tabletIndications:Dizzi ness,Vertigo Take 1 tablet by mouth 3 times daily if needed. 30 tablet 05/19/2018 Active ondansetron (ZOFRAN ODT) 4 mg [...] Outcome GA Total Labor Labor/2nd/3rd Weight Sex Type Anes PTL Jessie A1 A5 Name Clin 006 Term 38w 0d 14h 00m/ 3.54 kg (7 lb 13 oz) M Vag Living Freedom Comments:Post I nfection Last Filed Vital Signs Vital Sign Reading Time Taken Comments Blood Pressure 124/83 05/19/2018 2:41 PM UPPERS EDGE BURNISHER Pulse 101 05/19/2018 2:41 PM UPPERS EDGE BURNISHER Temperature 37.6 ??C (99.6 ??F) 05/19/2018 2:41 PM CS T Respiratory Rate 24 11/01/2010 9:18 AM CDT Oxygen Saturation 99% 05/19/2018 2:41 PM UPPERS EDGE BURNISHER Inhaled Oxygen Concentration - - Weight 114.4 kg (252 lb 3.2 oz) 05/19/2018 2:41 PM UPPERS EDGE BURNISHER Height 169 cm (5' 6.54) 05/19/2018 2:41 PM UPPERS EDGE BURNISHER Body Mass Index 40.05 05/19/2018 2:41 PM UPPERS EDGE BURNISHER Plan of Treatment Health Maintenance Due Date [...] (1 of 2) 2023 COVID-19 vaccine series (2022-24 season) 2023 10/23/2020, 10/02/2020 Influenza for age 50-64 03/07/2024 03/19/20 18, 03/20/2016, 03/10/2015, Additional history exists HIV for age 15-65 Completed 02/18/2007 Tdap Completed 10/18/2008 Pneumococcal series for age 6-64 Aged Out No longer eligible based on patient's age to complete this topic Procedures Procedure Name Priority Date/Time Associated Diagnosis Comments CANDLE EXTRUSION MACHINE OPERATOR THIN PREP PAP SCREEN IMAGED Routine 02/18/2007 11:03 AM CDT Screening Malignant Neoplasms Cervix ANTI HIV 1/2 Routine 02/18/2007 8:55 AM CDT Supervision Of Other Normal from Last 3 Months or Most Recently Relevant to Health Maintenance Results * CANDLE EXTRUSION MACHINE OPERATOR THIN PREP PAP SCREEN IMAGED (02/18/2007 11:03 AM CDT) CYTOLOGY ??CYTOPATHOLOGY REPORT ??[facility] ?? Status: Final Report ? [id number] ?? CLINICAL INFORMATION ?LMP ? : 12/17/06 ?Previous Pap Date ? : 08/12 ?Previous PAP Dx ? : Negative for intraepithelial lesion or ?malignancy. ?Previous [place]/bx date : None ?Previous Colposcopy/Bx: None ?Hormone Usage ? : None ?Menstrual Status ?: ?Appearance of Cervix ??: Not given ?[place]/Bx done today ?: No ?HPV Request ? : Reflex HPV test if PAP Dx ASCUS ?? SPECIMEN SOURCE ?: Cervical/vaginal ThinPrep Vial, screening ?? SPECIMEN ADEQUACY ?: Satisfactory for evaluation No endocervical ?component seen in a patient. ? INTERPRETATION/RES ULT: ?Negative for intraepithelial lesion or malignancy. ? Cytology 1st Screener : ??cml ?? Signed by: ? cml ?? This specimen was screened by the FDA approved ThinPrep Imaging ?? System and manually reviewed. ?? NOTE: The Pap test is a screening technique, not a diagnostic ?? procedure. It is used primarily to screen for squamous cancers and ?? precursor lesions. Published studies have shown that it is subject to ?? both false negative and false positive results. The pap test should ?? not be used as the sole means to diagnose or exclude pre-malignant and ?? malignant lesions. ?? COLLECTED: 02/18/07 ?? ACCESSIONED: 02/18/07 ?? SIGNED: 02/25/07 [facility] Cervical (Cervical) 02/18/2007 11:03 AM CDT 02/18/2007 10:37 AM CDT Hood Duque MD PATHOLOGY/CYTOL OGY [facility] INTERNAL ZIP [address] [address] * ANTI HIV 1/2 (02/18/2007 8:55 AM CDT) ANTI HIV 1/2 Non-reacti ve [facility] Blood specimen (specimen) BLOOD SPECIMEN / Unknown 02/18/2007 8:55 AM CDT 02/18/2007 8:53 AM CDT Hood Duque MD SEND OUTS [facility] INTERNAL ZIP [address] [place] [address] from Last 3 Months or Most Recently Relevant to Health Maintenance Care Teams Building Principal Relationship Specialty Start Date End Date Edgar Mina MD PCP - General 04/13/09
--- OUTSIDE RECORDS SUMMARY | 2023-12-31 04:39 | XMS_ITS | Encounter Summary ---
Author Organization [facility] Address [address] [place] [address] Care Team Providers Care Psych Coordinator Name Role Phone Irina Callahan MD Primary Care Provider [phone] Encounter Details Date Type Department Care Team [...] documented as of this encounter Care Teams Psych Coordinator Relationship Specialty Start Date End Date Irina Callahan MD [address] [place] [address] PCP - General 07/17/07 documented as of this encounter
== END 2023-12-29 07:23 | disposition home or self-care (01) ==
LOC: NFLDREF 12-31 04:37
PROVIDERS: PCP Family Medicine; Referring Provider Family Medicine; Visit Provider Family Medicine
DX: E78.5 Hyperlipidemia, unspecified (principal); I10 Essential (primary) hypertension
CPT/HCPCS: 80053; 80061

== ENCOUNTER 2024-04-21 08:00 | Outpatient (CLI) | payer BC, SELFPAY ==
--- OUTSIDE RECORDS SUMMARY | 2024-04-21 08:03 | XMS_ITS | Clinical Summary ---
Author Organization [facility] Address [address] [place] [address] Care Team Providers Care Crane Helper Name Role Phone Edgar Mina MD Primary Care Provider Allergies No known active allergies Medications Medication [...] Administration Dates Next Due COVID-19 MONOVALENT 12+ ([employer]) 10/23/2020,09/05 Family History Medical History Relation Comments C.A.D. Maternal Grandfather of [place] Cardiovascular Maternal Grandfather Heart Disease Maternal Grandfather of [place] Depression Maternal Grandmother Alcohol/Drug Maternal Uncle ETOH Anesthesia Reaction Mother Complication s after cataract surgery with anesthesia Arthritis Mother Rheumatoid arthr itis. Depression Mother Has been on Proz ac in the past. Diabetes Mother adult onset Obesity Mother Allergies Paternal Grandmother Relation Status Comments Brother 1 Alive Half-brother Brother 2 Alive Half-brother Father Alive Maternal Grandfather (Age 54) [place] Maternal Grandmother (Age 80's) M[facility] for 10 years Maternal Uncle Mother Alive [...] Comments Blood Pressure 131/91 05/25/2018 2:53 PM HOT WALKER Pulse 103 05/25/2018 11:16 AM HOT WALKER Temperature 36.7 ??C (98.1 ??F) 05/25/2018 11:[address] Respiratory Rate 16 05/25/2018 2:53 PM HOT WALKER Oxygen Saturation 97% 05/25/2018 2:53 PM HOT WALKER Inhaled Oxygen Concentration - - Weight 108.4 [...] 03/23/2007 ZOSTER IMMUNIZATION (1 of 2) 2023 PHQ-2 (once per calendar year) 2023 COVID-19 Vaccine (3 - season) 2024 10/23/2020, 10/02/2020 INFLUENZA VACCINE (#1) 2024 8, 03/20/2016, 03/10/2015, Additional history exists RSV VACCINE (1 - 1-dose 75+ series) 01/17/2048 HIV SCREENING Completed 08/26/2005 HPV IMMUNIZATION Aged [...] BASIC METABOLIC PANEL STAT 05/25/2018 11:19 AM HOT WALKER HCL GLUCOSE; 1 HR POST Routine 01/14/2006 9:45 AM CDT Supervis Other Normal Preg TRIPLE SCREEN Routine 10/31/2005 8:32 AM CDT Suprf High Risk Nec HCL PAP THIN LAYER SCREEN Routine 09/17/2005 12:00 AM HOT WALKER Suprf High Risk Nec HCL HIV 1 & 2 ANTIBODY Routine 08/26/2005 9:22 AM HOT WALKER Supervis Normal 1st Preg from Last 3 Months or Most Recently Relevant to Health Maintenance Results * Basic metabolic panel (05/25/2018 11:19 AM HOT WALKER) Sodium 137 133 - 144 mmol/L 05/25/2018 11:45 AM [facility] Potassium 4.2 3.4 - 5.3 mmol/L 05/25/2018 11:45 AM [facility] Chloride 105 94 - 109 mmol/L 05/25/2018 11:45 AM [facility] Carbon Dioxide 27 20 - 32 mmol/L 05/25/2018 11:45 AM [facility] Anion Gap 5 3 - 14 mmol/L 05/25/2018 11:45 AM [facility] Glucose 95 70 - 99 mg/dL 05/25/2018 11:45 AM [facility] Urea Nitrogen 17 7 - 30 mg/dL 05/25/2018 11:45 AM [facility] Creatinine 0.82 0.52 - 1.04 mg/dL 05/25/2018 11:45 AM [facility] GFR Estimate 75 >60 mL/min/1.7 m2 05/25/2018 11:45 AM [facility] Comment:Non GFR Calc GFR Estimate If Black >90 >60 mL/min/1.7 m2 05/25/2018 11:45 AM [facility] Comment: GFR Calc Calcium 9.1 8.5 - 10.1 mg/dL 05/25/2018 11:45 AM [facility] Blood specimen (specimen) 05/25/2018 11:19 AM [facility] 05/25/2018 11:20 AM [facility] Aarti Chua MD LAB - BLOOD [facility] [address] [phone] * GLUCOSE; 1 HR POST (01/14/2006 9:45 AM CDT) Glu Gest Screen 1hr 50g 128 60 - 140 mg/dL [facility] 01/14/2006 9:45 AM CDT 01/14/2006 9:47 AM CDT Latrice Rodriguez MD LABORATORY [facility] * TRIPLE SCREEN (10/31/2005 8:32 AM CDT) Pt Date of 2006 FA [facility] Patient Weight 220 LBS [facility] Due Date 04/20/2006 [facility] Dating Method [facility] Last Mens Period 07/14/2005 FA [facility] Twins NO [facility] Race of Mother [facility] Diabetic at Conception NO [facility] Fam History Of NTD NO [facility] Doctor's Name CEM RODRIGUEZ [facility] Alpha Feto Protein 30 [facility] Comment:Unit: ng/mL MoM for AFP 1.43 [facility] BHCG 17525 [facility] Comment:Unit: IU/L MoM For HCG 0.96 [facility] Estriol 0.89 [facility] Comment:Unit: ng/mL MoM uE3 1.27 [facility] AFP Interpretation NORMAL (Note) Maternal Serum AFP/hCG/uE3 (Triple) Screen ?NORMAL SCREEN Risks ? Pre-test ?Post-test ? (Cutoff) Open NTD ?1 in 900 ?1 in 4300 Down Syndrome ?? 1 in 430 ?1 in 3400 ? (1 in 190) Trisomy 18 ?1 in 1700 ?<1 in [address] ?(1 in 100) Assuming the patient information listed is correct, this maternal serum screen is within normal limits. ??The interpretation is based on maternal age, gestational age, maternal weight, the presence or absence of insulin requiring maternal diabetes, maternal race, and number of fetuses, if known. This test is performed pursuant to a licensing agreement with [employer]. [facility] Specimen Iteration First [facility] Maternal Age 33.2 ISSA W [facility] Comment:Unit: yr Dating LNMP [facility] Estimated Due Date [facility] Gest Age Exact 15.57 [facility] Comment:Unit: Weeks Patient Weight 220 [facility] Comment:Unit: lb Insulin Diabetic No [facility]ANNEN [facility] Fam History of NTD No [facility] Maternal Race WHITE FAIRVI EW [facility] Num of Fetuses 1.0 (Note) The above 17 tests were performed at: [place], [facility] [employer] [facility], [facility] ??[id number] ??[phone] ??[email or web address] [facility] 10/31/2005 8:32 AM CDT 10/31/2005 8:35 AM CDT Latrice Rodriguez MD LABORATORY [facility] * Pap Smear [G0123.000] (09/17/2005 12:00 AM HOT WALKER) PAP RAHUL Del Toro Report Patient Name: HARI OLIVARES MR#: [id number] Specimen #: [id number] Collected: 09/17/2005 Received: 09/17/2005 Reported: 09/19/2005 11:13 [...] [place], [place] (ASCP) Processed and screened at [facility], [facility] CLINICAL HISTORY: LMP: 07/14/05 , TESTING LAB LOCATION: [facility], [address] [place] [address] ??[phone] COLLECTION SITE: Client: ??[facility] Location: [facility] (P) [facility] 09/17/2005 09/17/2005 3:0 8 PM HOT WALKER Latrice Rodriguez MD LABORATORY [facility] * HIV-1/HIV-2 AB, EIA, W/WB RFLX [[id number]] (08/26/2005 9:22 AM HOT WALKER) HIV 1&2 Antibody Negative NEG [facility] 08/26/2005 9:22 AM HOT WALKER 08/26/2005 9:27 AM HOT WALKER Latrice Rodriguez MD LABORATORY [facility] from Last 3 Months or Most Recently Relevant to Health Maintenance Care Teams Crane Helper Relationship Specialty Start Date End Date Edgar Mina MD PCP - General Family Medicine - Sports Medicine 05/25/18
--- OUTSIDE RECORDS SUMMARY | 2024-04-21 08:04 | XMS_ITS | Clinical Summary ---
Author Organization [facility] Address [place], [place] [address] Care Team Providers Care Salon Supervisor Name Role Phone Edgar Mina MD Primary Care Provider [phone] Allergies No known active allergies Medications Medication [...] Date BPPV (benign paroxysmal positional vertigo) 12/07 Overview (01/03/2019): Saw ENT December 2018: Supervision of other [...] Comments Blood Pressure 124/83 05/19/2018 2:41 PM SENIOR INFORMATION SECURITY CONSULTANT Pulse 101 05/19/2018 2:41 PM SENIOR INFORMATION SECURITY CONSULTANT Temperature 37.6 ??C (99.6 ??F) 05/19/2018 2:41 PM CS T Respiratory Rate 24 11/01/2010 9:18 AM CDT Oxygen Saturation 99% 05/19/2018 2:41 PM SENIOR INFORMATION SECURITY CONSULTANT Inhaled Oxygen Concentration - - Weight 114.4 kg (252 lb 3.2 oz) 05/19/2018 2:41 PM SENIOR INFORMATION SECURITY CONSULTANT Height 169 cm (5' 6.54) 05/19/2018 2:41 PM SENIOR INFORMATION SECURITY CONSULTANT Body Mass Index 40.05 05/19/2018 2:41 PM SENIOR INFORMATION SECURITY CONSULTANT Plan of Treatment Health Maintenance Due Date [...] (1 of 2) 2023 COVID-19 vaccine series ( season) 2024 10/23/2020, 10/02/2020 Influenza for age 50-64 03/07/2024 03/19/20 18, 03/20/2016, 03/10/2015, Additional history exists HIV for age 15-65 Completed 02/18/2007 Tdap Completed 10/18/2008 Pneumococcal series for age 6-64 Aged Out No longer eligible based on patient's age to complete this topic Procedures Procedure Name Priority Date/Time Associated Diagnosis Comments RADIOLOGICAL TECHNOLOGIST THIN PREP PAP SCREEN IMAGED Routine 02/18/2007 11:03 AM CDT Screening Malignant Neoplasms Cervix ANTI HIV 1/2 Routine 02/18/2007 8:55 AM CDT Supervision Of Other Normal from Last 3 Months or Most Recently Relevant to Health Maintenance Results * RADIOLOGICAL TECHNOLOGIST THIN PREP PAP SCREEN IMAGED (02/18/2007 11:03 AM CDT) CYTOLOGY ??CYTOPATHOLOGY REPORT ??[facility] ?? Status: Final Report ? [id number] ?? CLINICAL INFORMATION ?LMP ? : 12/17/06 ?Previous Pap Date ? : 08/12 ?Previous PAP Dx ? : Negative for intraepithelial lesion or ?malignancy. ?Previous [place]/bx date : None ?Previous Colposcopy/Bx: None ?Hormone Usage ? : None ?Menstrual Status ?: ?Appearance of Cervix ??: Not given ?[place]/Bx done today ?: No ?HPV Request ? [...] 02/18/07 ?? ACCESSIONED: 02/18/07 ?? SIGNED: 02/25/07 [facility] Cervical (Cervical) 02/18/2007 11:03 AM CDT 02/18/2007 10:37 AM CDT Hood Duque MD PATHOLOGY/CYTOL OGY [facility] INTERNAL ZIP [address] [address] * ANTI HIV 1/2 (02/18/2007 8:55 AM CDT) ANTI HIV 1/2 Non-reacti ve [facility] Blood specimen (specimen) BLOOD SPECIMEN / Unknown 02/18/2007 8:55 AM CDT 02/18/2007 8:53 AM CDT Hood Duque MD SEND OUTS [facility] INTERNAL ZIP [address] [place] [address] from Last 3 Months or Most Recently Relevant to Health Maintenance Care Teams Salon Supervisor Relationship Specialty Start Date End Date Edgar Mina MD PCP - General 04/13/09
--- OUTSIDE RECORDS SUMMARY | 2024-04-21 08:04 | XMS_ITS | Encounter Summary ---
Author Organization [facility] Address [address] [place] [address] Care Team Providers Care Die Repairer Forging Name Role Phone Edgar Mina MD Primary [...] on filedocumented in this encounter Care Teams Die Repairer Forging Relationship Specialty Start Date End Date Edgar Mina MD PCP - General Family Medicine - Sports Medicine 05/25/18 documented as of this encounter
--- OUTSIDE RECORDS SUMMARY | 2024-04-21 08:04 | XMS_ITS | Encounter Summary ---
Author Organization [facility] Address [address] [place] [address] Care Team Providers Care Administrative Office Specialist Name Role Phone Irina Callahan MD Primary Care Provider [phone] Encounter Details Date Type Department Care Team [...] documented as of this encounter Care Teams Administrative Office Specialist Relationship Specialty Start Date End Date Irina Callahan MD [address] [place] [address] PCP - General 07/17/07 documented as of this encounter
--- OUTSIDE RECORDS SUMMARY | 2024-04-21 08:04 | XMS_ITS | Clinical Summary ---
Author Organization [facility] Address [address], [place] [address] Care Team Providers Care Stud Sheep Farmer Name Role Phone Irina Callahan MD Primary Care Provider [phone] Source Comments You are receiving this document [...] for each transition of care or referral. [place] [facility] Medications Medication Sig Dispensed Refills Start Date End Date Status MULTIPLE VITAMIN OR None Entered Act debra ergocalciferol (VITAMIN D, ERGOCALCIFEROL,) 26866 UNIT capsule Take 1 Cap by mouth [...] Screening for malignant neoplasm of cervix 11/18 Overview (04/06/2015): 2010 NILM 2014 NILM, HPV negative Plan: Co-test 11/2019 [facility] Menstrual migraine 11/06/2011 Vitamin D deficiency 08/10/2010 Overview (08/10/2010): In the 9 range in 08/2010. PMS (premenstrual syndrome) 08/08/2010 Overview (08/08/2010): Anger Obesity 10/18/2008 Resolved Problems Problem Noted Date Diagnosed Date Resolved Date Depression, major, recurrent , in complete remission 11/06/2011 11/11/2014 Major depressive disorder, s raf episode, in remission 10/20/2008 11/06/2011 Overview (04/06/2015): [facility] Encounter for supervision of normal in multigravida 07/24/2007 10/18/2008 Immunizations Name Administration Dates Next Due Flu Vac (3+ yrs) 08/08/2010 Influenza IIV4 (Quadrivalent) 0.5mL (46651) 03/07 Tdap 10/18/2008 Family History Medical History [...] T Respiratory Rate 16 07/31/2016 9:16 AM MANAGER PEDIATRIC Oxygen Saturation - - Inhaled Oxygen Concentration [...] of 2) 2023 COVID-19 Vaccine ( season) 2024 10/02/2020 Influenza (#1) 2024 04/15/2019, 1008/2017, 03/19/2018, Additional history exists HIV Screening (Preventive Services) Completed 02/18/2007 HepA Aged Out No longer eligi ble based on patient's age to complete this topic Hib Aged Out No longer eligi ble based on patient's age to complete this topic IPV (Polio) Aged Out No longer eligi ble based on patient's age to complete this topic RSV Aged Out No longer eligi ble based [...] (11/11/2014 9:41 AM CDT) Cytology, Pap (NOTE) Parachute Inspector Cytology Report Patient Name: HARI QUINTANILLA Taken: 11/11/2014 Received: 11/14/2014 Reported: 11/17/2014 Physician(s): IRINA CALLAHAN ([id number]) ?Source of Specimen Pap Test, Routine Cervical/Endocervi jeremy: ?Specimen Adequacy ?Satisfactory for evaluation. ??Endocervical component present. ? Final Cytologic Interpretation/Res ult NEGATIVE FOR INTRAEPITHELIAL LESION OR MALIGNANCY (NILM) ?? Electronically Signed Out By Vanessa Jones, CT (ASCP) Zenobia Templeton, ??CT (ASCP) Vanessa Jones, CT (ASCP) ? Pap Smear History Date of Last Menstrual Period: No LMP recorded ?? Microscopic Description Microscopic examination is performed. [facility] Department of Pathology [address] [place] [address] ??[id number] [facility] 11/11/2014 9:41 AM CDT 11/14/2014 7:25 PM CDT Irina Callahan MD LAB_1 [facility] [phone] * (ABNORMAL) LIPID PANEL AND DIRECT LDL(IF NEEDED) (11/01/2011 8:48 AM CDT) Cholesterol 204(H) 0 - 199 mg/dl [facility] Triglyceride 155(H) 0 - 149 mg/dl [facility] HDL 47 >40 mg/dl [facility] LDL, Calc. 126 0 - 129 mg/dl [facility] Non HDL Chol, Calc 157 mg/dl [facility] Comment:Non HDLC goal is 30 mg/dl above the patient's desired LDLC goal. Hours Fasting 12 hours [facility] 11/01/2011 8:48 AM CDT 11/01/2011 8:53 AM CDT Irina Callahan MD LAB_1 Performing Organization Address [facility] Co de Phone Number [facility] [address] [address] * HIV ANTIBODY (02/18/2007) HIV 1/2 Antibody Non-Reacti ve Comment:[facility] 02/18/2007 Irina Callahan MD LAB_1 from Last 3 Months or Most Recently Relevant to Health Maintenance Care Teams Stud Sheep Farmer Relationship Specialty Start Date End Date Irina Callahan MD [address] [place] [id number] PCP - General 07/17/07
--- OUTSIDE RECORDS SUMMARY | 2024-04-21 08:04 | XMS_ITS | Encounter Summary ---
Author Organization [facility] Address [address] [place] [address] Care Team Providers Care Structural Mill Supervisor Name Role Phone Edgar Mina MD [...] on filedocumented in this encounter Care Teams Structural Mill Supervisor Relationship Specialty Start Date End Date Edgar Mina MD PCP - General Family Medicine - Sports Medicine 05/25/18 documented as of this encounter
--- OUTSIDE RECORDS SUMMARY | 2024-04-21 08:04 | XMS_ITS | Referral Summary ---
Author Organization [facility] Address [address] [place] [address] Care Team Providers Care Bioengineer Name Role Phone Edgar Mina MD Primary Care Provider [phone] Allergies No known active allergies Medications Medication [...] Administration Dates Next Due COVID-19 MONOVALENT 12+ (Repair Report) 10/23/2020,09/05 Social History Tobacco Use Types Packs/Day [...] Comments Blood Pressure 131/91 05/25/2018 2:53 PM REGULATORY AGENCY DIRECTOR Pulse 103 05/25/2018 11:16 AM REGULATORY AGENCY DIRECTOR Temperature 36.7 ??C (98.1 ??F) 05/25/2018 11:[address] Respiratory Rate 16 05/25/2018 2:53 PM REGULATORY AGENCY DIRECTOR Oxygen Saturation 97% 05/25/2018 2:53 PM REGULATORY AGENCY DIRECTOR Inhaled Oxygen Concentration - - Weight 108.4 kg (239 lb) 01/20/2006 9:00 AM CDT Height 170.2 cm (5' 7) 11/25/2005 8:45 AM CDT Body Mass Index 37.43 11/25/2005 8:45 AM CDT Plan of Treatment Not on file Procedures Procedure Name Priority Date/Time Associated Diagnosis Comments BASIC METABOLIC PANEL STAT 05/25/2018 11:19 AM REGULATORY AGENCY DIRECTOR HCL GLUCOSE; 1 HR POST Routine 01/14/2006 9:45 AM CDT Supervis Other Normal Preg TRIPLE SCREEN Routine 10/31/2005 8:32 AM CDT Suprf High Risk Nec HCL PAP THIN LAYER SCREEN Routine 09/17/2005 12:00 AM REGULATORY AGENCY DIRECTOR Suprf High Risk Nec HCL HIV 1 & 2 ANTIBODY Routine 08/26/2005 9:22 AM REGULATORY AGENCY DIRECTOR Supervis Normal 1st Preg from Last 3 Months or Most Recently Relevant to Health Maintenance Results * Basic metabolic panel (05/25/2018 11:19 AM REGULATORY AGENCY DIRECTOR) Sodium 137 133 - 144 mmol/L 05/25/2018 11:[address] [facility] Potassium 4.2 3.4 - 5.3 mmol/L 05/25/2018 11:[address] [facility] Chloride 105 94 - 109 mmol/L 05/25/2018 11:[address] [facility] Carbon Dioxide 27 20 - 32 mmol/L 05/25/2018 11:[address] [facility] Anion Gap 5 3 - 14 mmol/L 05/25/2018 11:[address] [facility] Glucose 95 70 - 99 mg/dL 05/25/2018 11:[address] [facility] Urea Nitrogen 17 7 - 30 mg/dL 05/25/2018 11:[address] [facility] Creatinine 0.82 0.52 - 1.04 mg/dL 05/25/2018 11:[address] [facility] GFR Estimate 75 >60 mL/min/1.7 m2 05/25/2018 11:[address] [facility] Comment:Non GFR Calc GFR Estimate If Black >90 >60 mL/min/1.7 m2 05/25/2018 11:[address] [facility] Comment: GFR Calc Calcium 9.1 8.5 - 10.1 mg/dL 05/25/2018 11:[address] [facility] Blood specimen (specimen) 05/25/2018 11:19 AM REGULATORY AGENCY DIRECTOR 05/25/2018 11:20 AM REGULATORY AGENCY DIRECTOR Aarti Chua MD LAB - BLOOD [facility] [address] [phone] * GLUCOSE; 1 HR POST (01/14/2006 9:45 AM CDT) Glu Gest Screen 1hr 50g 128 60 - 140 mg/dL [facility] 01/14/2006 9:45 AM CDT 01/14/2006 9:47 AM CDT Latrice Rodriguez MD LABORATORY [facility] * TRIPLE SCREEN (10/31/2005 8:32 AM CDT) Pt Date of 2006 [facility] Due Date 04[facility]20/2006 [facility] Dating Method [facility] Last Mens Period 07/14/2005 [facility] Twins NO [facility] Race of Mother [facility] Diabetic at Conception NO [facility] Fam History Of NTD NO [facility] Doctor's Name CEM RORDIGUEZ [facility] Alpha Feto Protein 30 [facility] Comment:Unit: ng/mL MoM for AFP 1.43 [facility] BHCG 84351 [facility] Comment:Unit: IU/L MoM For HCG 0.96 [facility] Estriol 0.89 [facility] Comment:Unit: ng/mL MoM uE3 1.27 [facility] AFP Interpretation NORMAL (Note) Maternal Serum AFP/hCG/uE3 (Triple) Screen ?NORMAL SCREEN Risks ? Pre-test ?Post-test ? (Cutoff) Open NTD ?1 in 900 ?1 in 4300 Down Syndrome ?? 1 in 430 ?1 in 3400 ? (1 in 190) Trisomy 18 ?1 in 1700 ?<1 in [address] ?(1 in 100) Assuming the patient information listed is correct, this maternal serum screen is within normal limits. ??The interpretation is based on maternal age, gestational age, maternal weight, the presence or absence of insulin requiring maternal diabetes, maternal race, and number of fetuses, if known. This test is performed pursuant to a licensing agreement with [employer]. [facility] Specimen Iteration First [facility] Maternal Age 33.2 [facility] Comment:Unit: yr Dating LNMP [facility] Estimated Due Date [facility] Gest Age Exact 15.57 [facility] Comment:Unit: Weeks Patient [facility] Comment:Unit: lb Insulin Diabetic No [facility] Fam History of NTD No [facility] Maternal Race WHITE [facility] Num of Fetuses 1.0 (Note) The above 17 tests were performed at: [employer], [address] [place] [address] ??[address] ??[phone] ??[email or web address] [facility] 10/31/2005 8:32 AM CDT 10/31/2005 8:35 AM CDT Latrice Rodriguez MD LABORATORY [facility] * Pap Smear [G0123.000] (09/17/2005 12:00 AM REGULATORY AGENCY DIRECTOR) PAP RAHUL Del Toro Report Patient Name: HARI OLIVARES MR#: [id number] Specimen #: [id number] Collected: 09/17/2005 Received: 09/17/2005 Reported: 09/19/2005 11:13 [...] OFELIA Chandler (ASCP) Processed and screened at [facility] CLINICAL HISTORY: LMP: 07/14/05 , TESTING LAB LOCATION: [facility], [address] [place] [address] ??[id number] COLLECTION SITE: Client: ??[facility] Location: ZMFP (P) COPATH 09/17/2005 09/17/2005 3:0 8 PM REGULATORY AGENCY DIRECTOR Latrice Rodriguez MD LABORATORY COPATH * HIV-1/HIV-2 AB, EIA, W/WB RFLX [[id number]] (08/26/2005 9:22 AM REGULATORY AGENCY DIRECTOR) HIV 1&2 Antibody Negative NEG [facility] 08/26/2005 9:22 AM REGULATORY AGENCY DIRECTOR 08/26/2005 9:27 AM REGULATORY AGENCY DIRECTOR Latrice Rodriguez MD LABORATORY [facility] from Last 3 Months or Most Recently Relevant to Health Maintenance Care Teams Bioengineer Relationship Specialty Start Date End Date Edgar Mina MD PCP - General Family Medicine - Sports Medicine 05/25/18
--- NOTE | 2024-04-21 08:15 | CRLHL7_ITS ---
For Patients: As a result of the Cures Act, medical imaging exams and procedure reports are released immediately into your electronic medical record. You may view this report before your referring provider. If you have questions, please contact your health care provider. BILATERAL SCREENING MAMMOGRAM WITH COMPUTER-AIDED DETECTION AND TOMOSYNTHESIS TECHNIQUE: CC and MLO views were obtained. These mammographic images have been obtained using full-field digital technique. These mammographic images were interpreted with the benefit of computer-aided detection. Breast Tomosynthesis was used in this interpretation. COMPARISON FILM: 04/15/23, 07/12/22. FINDINGS: The breasts are almost entirely fatty IMPRESSION: There is no radiographic evidence for malignancy. ASSESSMENT: BI-RADS Category 1: Negative RECOMMENDATION: Routine screening mammogram in 1 year. A lay language report of this examination will be provided to the patient. Gurvinder Escobar M.D. Diagnostic Radiologist [email or web address] AIDAN/[email or web address] Transcribed: 2:48 p.carrie hines/Dictated by: Gurvinder Escobar MD @ 04/27/2024 9:12:00 AM (Electronically Signed)
== END 2024-04-21 08:01 | disposition home or self-care (01) ==
LOC: MAMMO 08:01
PROVIDERS: PCP Family Medicine; Visit Provider Family Medicine
DX: Z12.31 Encounter for screening mammogram for malignant neoplasm of breast (principal)
CPT/HCPCS: 77063; 77067

== ENCOUNTER 2024-09-13 16:56 | Emergency (ER) | payer BC, SELFPAY ==
--- OUTSIDE RECORDS SUMMARY | 2024-09-13 16:59 | XMS_ITS | Encounter Summary ---
Author Organization [facility] Address [address] [place] [address] Care Team Providers Care Sign Maker Name Role Phone Irina Callahan MD Primary Care Provider [phone] Encounter Details Date Type Department Care Team (Late st Contact Info) Description 11/05/2016 Scanned History External to [facility] Transferred Record, Provider TRANSFERRED RECORDS Social History Tobacco Use Types Packs/Day Years Used Date Smoking Tobacco: Never Smokeless Tobacco: Never Alcohol Use Standard Drinks/Week Comments Yes 0 (1 standard drink = 0.6 oz pur e alcohol) social Comments No Sex and Gender Information Value Date Recorded Sex Assigned at Not on file Legal Sex Female 6:11 AM CDT Gender Identity Not on file Sexual Orientation Not on file 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
--- OUTSIDE RECORDS SUMMARY | 2024-09-13 16:59 | XMS_ITS | Encounter Summary ---
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
--- OUTSIDE RECORDS SUMMARY | 2024-09-13 16:59 | XMS_ITS | Clinical Summary ---
Author Organization [facility] Address [address] [place] [address] Care Team Providers Care Shoes Hand Sewer Name Role Phone Edgar Mina MD Primary Care Provider [phone] Allergies No known active allergies Medications FLINTSTONES COMPLETE OR CHEW two daily 08/26/2005 Active UNISOM OR 1 TABLET AT BEDTIME NEEDED Active RIBOFLAVIN 50 MG OR CAPS 1/2 tab daily at hs Active TYLENOL 325 MG OR TABS 2 TABLETS EVERY 4 HOURS NEEDED Active SALINE AERO as directed. Activ e Active Problems Problem Noted Date Diagnosed Date Carpal tunnel syndrome 12/23/2005 Depressive disorder, not elsewhere classified Supervision of other high-risk 006 Overview (04/06/2015): Problem list name updated by automated process. Provider to review Vaginitis and vulvovaginitis 09/26/2005 Overview (04/06/2015): Problem list name updated by automated process. Provider to review Obesity 09/26/2005 Overview (04/06/2015): Problem list name updated by automated process. Provider to review Exercise-induced asthma Overview (04/06/2015): Dx as teenager. Never used inhalers. Problem list name updated by automated process. Provider to review Rheumatoid arthritis Overview (04/06/2015): Problem list name updated by automated process. Provider to review Migraine Overview (04/06/2015): Problem list name updated by automated process. Provider to review Immunizations Name Administration Dates Next Due COVID-19 MONOVALENT 12+ (Pfizer) 10/23/2020,09/05 Family History Medical History Relation Comments C.A.D. Maternal Grandfather of [place] Cardiovascular Maternal Grandfather Heart Disease Maternal Grandfather of [place] Depression Maternal Grandmother Alcohol/Drug Maternal Uncle ETOH Anesthesia Reaction Mother Complication s after cataract surgery with anesthesia Arthritis Mother Rheumatoid arthr itis. Depression Mother Has been on Proz ac in the past. Diabetes Mother adult onset Obesity Mother Allergies Paternal Grandmother Relation Status Comments Brother 1 Alive Half-brother Brother 2 Alive Half-brother Father Alive Maternal Grandfather (Age 54) [place] Maternal Grandmother (Age 80's) long term for 10 years Maternal Uncle Mother Alive Paternal Grandmother Sister Alive Half-sister Social History Tobacco Use Types Packs/Day Years Used Date Smoking Tobacco: Never Alcohol Use Standard Drinks/Week Comments Yes 0 (1 standard drink = 0.6 oz pure alcohol) 2 per week before pg. None since knows pg. 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 Not on file N ot on file Last Filed Vital Signs Vital Sign Reading Time Taken Comments Blood Pressure 131/91 05/25/2018 2:53 PM GEOMETRY PROFESSOR Pulse 103 05/25/2018 11:16 AM GEOMETRY PROFESSOR Temperature 36.7 C (98.1 F) 05/25/2018 11:16 AM GEOMETRY PROFESSOR Respiratory Rate 16 05/25/2018 2:53 PM GEOMETRY PROFESSOR Oxygen Saturation 97% 05/25/2018 2:53 PM GEOMETRY PROFESSOR Inhaled Oxygen Concentration - - Weight 108.4 kg (239 lb) 01/20/2006 9:00 AM CDT Height 170.2 cm (5' 7) 11/25/2005 8:45 AM CDT Body Mass Index 37.43 11/25/2005 8:45 AM CDT Plan of Treatment Health Maintenance Due Date Last Done Comments ADVANCE CARE PLANNING 1973 ANNUAL REVIEW OF HM ORDERS 1973 CT COLONOGRAPHY 1973 FIT 1973 FLEX SIG 1973 MAMMO SCREENING 1973 sDNA (Cologuard) 1973 YEARLY PREVENTIVE VISIT 01/17/1976 COLONOSCOPY 1983 COLORECTAL CANCER SCREENING 1983 HEPATITIS C SCREENING 1991 HEPATITIS B IMMUNIZATION (1 of 3 - 19+ 3-dose series) 01/17/1992 DTAP/TDAP/TD IMMUNIZATION (1 - Tdap) 1998 PAP 09/17/2008 09/17/2005 LIPID 2013 GLUCOSE 05/25/2021 05/25/2018, 03/23/2007 Pneumococcal Vaccine: 50+ Years (1 of 1 - PCV) 2023 ZOSTER IMMUNIZATION (1 of 2) 2023 COVID-19 Vaccine (3 - season) 2024 10/23/2020, 10/02/2020 INFLUENZA VACCINE (#1) 2024 8, 03/20/2016, 03/10/2015, Additional history exists PHQ-2 (once per calendar year) 2024 HIV SCREENING Completed 08/26/2005 HPV IMMUNIZATION Aged Out No longer e ligible based on patient's age to complete this topic MENINGITIS IMMUNIZATION Aged Out No l onger eligible based on patient's age to complete this topic Procedures Procedure Name Priority Date/Time Associated Diagnosis Comments BASIC METABOLIC PANEL STAT 05/25/2018 11:19 AM GEOMETRY PROFESSOR HCL GLUCOSE; 1 HR POST Routine 01/14/2006 9:45 AM CDT Supervis Other Normal Preg TRIPLE SCREEN Routine 10/31/2005 8:32 AM CDT Suprf High Risk Nec HCL PAP THIN LAYER SCREEN Routine 09/17/2005 12:00 AM GEOMETRY PROFESSOR Suprf High Risk Nec HCL HIV 1 & 2 ANTIBODY Routine 08/26/2005 9:22 AM GEOMETRY PROFESSOR Supervis Normal 1st Preg from Last 3 Months or Most Recently Relevant to Health Maintenance Results * Basic metabolic panel (05/25/2018 11:19 AM GEOMETRY PROFESSOR) Sodium 137 133 - 144 mmol/L 05/25/2018 11:45 AM [facility] Potassium 4.2 3.4 - 5.3 mmol/L 05/25/2018 11:45 AM [facility] Chloride 105 94 - 109 mmol/L 05/25/2018 11:45 AM [facility] Carbon Dioxide 27 20 - 32 mmol/L 05/25/2018 11:45 AM [facility] Anion Gap 5 3 - 14 mmol/L 05/25/2018 11:45 AM [facility] Glucose 95 70 - 99 mg/dL 05/25/2018 11:45 AM [facility] Urea Nitrogen 17 7 - 30 mg/dL 05/25/2018 11:45 AM [facility] Creatinine 0.82 0.52 - 1.04 mg/dL 05/25/2018 11:45 AM [facility] GFR Estimate 75 >60 mL/min/1.7 m2 05/25/2018 11:45 AM [facility] Comment:Non GFR Calc GFR Estimate If Black >90 >60 mL/min/1.7 m2 05/25/2018 11:45 AM [facility] Comment: GFR Calc Calcium 9.1 8.5 - 10.1 mg/dL 05/25/2018 11:45 AM [facility] Blood specimen (specimen) 05/25/2018 11:19 AM [facility] 05/25/2018 11:20 AM [facility] us Aarti Chua MD LAB - BLOOD ORDERABLES F inal Result [facility] [place] [address], [facility] [phone] * GLUCOSE; 1 HR POST (01/14/2006 9:45 AM CDT) Glu Gest Screen 1hr 50g 128 60 - 140 mg/dL [facility] 01/14/2006 9:45 AM CDT 01/14/2006 9:47 AM CDT us Latrice Rodriguez MD LABORATORY Final Result [facility] [place] [address] [place] [address] * TRIPLE SCREEN (10/31/2005 8:32 AM CDT) Pt Date of 2006 [facility] Patient Weight 220 LBS [facility] Due Date 04/20/2006 [facility] Dating Method LMP [facility] Last Mens Period 07/14/2005 [facility] Twins NO [facility] Race of Mother [facility] Diabetic at Conception NO [facility] Fam History Of NTD NO [facility] Doctor's Name CEM RODRIGUEZ [facility] Alpha Feto Protein 30 [facility] Comment:Unit: ng/mL MoM for AFP 1.43 [facility] BHCG 65131 [facility] Comment:Unit: IU/L MoM For HCG 0.96 [facility] Estriol 0.89 [facility] Comment:Unit: ng/mL MoM uE3 1.27 [facility] AFP Interpretation NORMAL (Note) Maternal Serum AFP/hCG/uE3 (Triple) Screen NORMAL SCREEN Risks Pre-test Post-test (Cutoff) Open NTD 1 in 900 1 in 4300 Down Syndrome 1 in 430 1 in 3400 (1 in 190) Trisomy 18 1 in 1700 <1 in [address] (1 in 100) Assuming the patient information listed is correct, this maternal serum screen is within normal limits. The interpretation is based on maternal age, gestational age, maternal weight, the presence or absence of insulin requiring maternal diabetes, maternal race, and number of fetuses, if known. This test is performed pursuant to a licensing agreement with [employer]. [facility] Specimen Iteration First [facility] Maternal Age 33.2 M [facility] Comment:Unit: yr Dating LNMP [facility] Estimated Due Date [facility] Gest Age Exact 15.57 M [facility] Comment:Unit: Weeks Patient Weight 220 M [facility] Comment:Unit: lb Insulin Diabetic No [facility] Fam History of NTD No [facility] Maternal Race WHITE M [facility] Num of Fetuses 1.0 (Note) The above 17 tests were performed at: [employer] [address] [email or web address] [facility] 10/31/2005 8:32 AM CDT 10/31/2005 8:35 AM CDT us Latrice Rodriguez MD LABORATORY Final Result [facility] [address] [facility] [place], [place] [id number] [place] [address] * Pap Smear [G0123.000] (09/17/2005 12:00 AM GEOMETRY PROFESSOR) PAP RAHUL Del Toro Report Patient Name: HARI OLIVARES MR#: [id number] Specimen #: [id number] Collected: 09/17/2005 Received: 09/17/2005 Reported: 09/19/2005 11:13 Ordering Phy(s): LATRICE RODRIGUEZ SPECIMEN/STAIN PROCESS: Pap thin layer prep screening ([facility]) Pap-Cyto x 1, Reflex HPV x 1 SOURCE: Cervical, endocervical Pap thin layer prep screening ([facility]) SPECIMEN ADEQUACY: Satisfactory for evaluation. -Transitional zone component absent. CYTOLOGIC INTERPRETATION: Negative for Intraepithelial Lesion or Malignancy Organism(s): -Fungal organisms morphologically consistent with Kristel spp. Electronically signed out by: OFELIA Chandler (ASCP) Processed and screened at [facility] CLINICAL HISTORY: LMP: 07/14/05 , TESTING LAB LOCATION: [facility], [address] [place] [id number] COLLECTION SITE: Client: [facility] Location: ZMFP (P) COPATH 09/17/2005 09/17/2005 3:0 8 PM GEOMETRY PROFESSOR Latrice Rodriguez MD LABORATORY Final Result Performing Organization Address City/[facility]/ZIP Co de Phone Number COPATH * HIV-1/HIV-2 AB, EIA, W/WB RFLX [[id number]] (08/26/2005 9:22 AM GEOMETRY PROFESSOR) HIV 1&2 Antibody Negative NEG [facility] 08/26/2005 9:22 AM GEOMETRY PROFESSOR 08/26/2005 9:27 AM GEOMETRY PROFESSOR Latrice Rodriguez MD LABORATORY Final Result [facility] [address] [place] [address] from Last 3 Months or Most Recently Relevant to Health Maintenance Insurance BCBS OUT OF STATE Care Teams Shoes Hand Sewer Relationship Specialty Start Date End Date Edgar Mina MD PCP - General Family Medicine - Sports Medicine 05/25/18
--- OUTSIDE RECORDS SUMMARY | 2024-09-13 16:59 | XMS_ITS | Encounter Summary ---
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
--- OUTSIDE RECORDS SUMMARY | 2024-09-13 17:00 | XMS_ITS | Clinical Summary ---
Author Organization [facility] Address [address], [place] [address] Care Team Providers Care Director Motion Picture Name Role Phone Irina Callahan MD Primary Care Provider [phone] Source Comments You are receiving this document [...] for each transition of care or referral. Sociable Labs Medications MULTIPLE VITAMIN OR None Entered Active ergocalciferol (VITAMIN D, ERGOCALCIFEROL ,) 89007 UNIT capsule Take 1 Cap by mouth two times a week. 24 Cap prn 2 Active levonorgest-et h estrad 91-Day (SEASONALE) 0.15-0.03 MG tablet Take 1 Tab by mouth daily. 91 Tab 5 6 Active cyclobenzaprin e (FLEXERIL) 10 MG tablet Take 1 Tab by mouth three times a day as needed for Muscle Spasms. 30 Tab 3 7 Active fluticasone (FLONASE) 50 MCG/ACT nasal solution PLACE 2 SPRAYS INTO BOTH NOSTRILS DAILY NEEDED 48 g 3 7 Active acetaminophen 500 MG capsuleIndicat ions:Dysmenorr hea Take 1-2 Caps by mouth every 6 hours as needed for Pain. Maximum acetaminophen dose is 4000 mg in 24 hours 04/10/201 7 Active Active Problems Problem Noted Date Diagnosed Date Uterus, adenomyosis 09/17/2016 Nasal congestion 03/20/2016 Pelvic pain in female 03/20/2016 Screening for malignant neoplasm of cervix 11/18 Overview (04/06/2015): 2010 NILM 2014 NILM, HPV negative Plan: Co-test 11/2019 [facility] Menstrual migraine 11/06/2011 Vitamin D deficiency 08/10/2010 Overview (08/10/2010): In the 9 range in 08/2010. PMS (premenstrual syndrome) 08/08/2010 Overview (08/08/2010): Anger Obesity 10/18/2008 Resolved Problems Problem Noted Date Diagnosed Date Resolved Date Depression, major, recurrent , in complete remission 11/06/2011 11/11/2014 Major depressive disorder, s raf episode, in remission 10/20/2008 11/06/2011 Overview (04/06/2015): [facility] Encounter for supervision of normal in multigravida 07/24/2007 10/18/2008 Immunizations Immunization Administration Dates Next Due Flu Vac (3+ yrs) 08/08/2010 Influenza IIV4 (Quadrivalent) 0.5mL (05606) 03/07 Tdap 10/18/2008 Family History Medical History [...] file Not on file Not on file Last Filed Vital Signs Vital Sign Reading Time Taken Comments Blood Pressure 131/89 10/14/2016 10:49 AM CDT Pulse 79 10/14/2016 10:49 AM CDT Temperature 37.3 C (99.1 F) 03/20/2016 2:48 PM CDT Respiratory Rate 16 07/31/2016 9:16 AM VENDING MACHINE REPAIRER Oxygen Saturation - - Inhaled Oxygen Concentration [...] 10/18/2008 Cervical Cancer Screening 11/12/20192014, 08/08/2010, 02/18/2007 Pneumococcal 50+ Yrs (1 of 1 - PCV) 2023 Zoster/Shingles (1 of 2) 2023 COVID-19 Vaccine (2 - season) 2024 10/02/2020 Influenza (#1) 2024 04/15/2019, 08/2017, 03/19/2018, Additional history exists HIV [...] on patient's age to complete this topic Meningococcal B Aged Out No longer el igible based on patient's age to complete this [...] evaluated with the assistance of Computer-Aided Detection. Repeat routine screening mammogram in one year is recommended. ACR BI-RADS Category 1: Negative us Irina Callahan MD RAD NEHA Final Result * PAP TEST, ROUTINE (11/11/2014 9:41 AM CDT) Cytology, Pap (NOTE) Belt Cleaner Cytology Report Patient Name: HARI QUINTANILLA Taken: 11/11/2014 Received: 11/14/2014 Reported: 11/17/2014 Physician(s): IRINA CALLAHAN ([id number]) Source of Specimen Pap Test, Routine Cervical/Endocervi jeremy: Specimen Adequacy Satisfactory for evaluation. Endocervical component present. Final Cytologic Interpretation/Res ult NEGATIVE FOR INTRAEPITHELIAL LESION OR MALIGNANCY (NILM) Electronically Signed Out By OFELIA Davila (ASCP) OFELIA Worthington (ASCP) OFELIA Davila (ASCP) Pap Smear History Date of Last Menstrual Period: No LMP recorded Microscopic Description Microscopic examination is performed. Department of Pathology [address] [place] [id number] [facility] 11/11/2014 9:41 AM CDT 11/14/2014 7:25 PM CDT us Irina Callahan MD LAB_1 Final Result [facility] [phone] * (ABNORMAL) LIPID PANEL AND DIRECT LDL(IF NEEDED) (11/01/2011 8:48 AM CDT) Cholesterol 204(H) 0 - 199 mg/dl [facility] Triglyceride 155(H) 0 - 149 mg/dl [facility] HDL 47 >40 mg/dl [facility] LDL, Calc. 126 0 - 129 mg/dl [facility] Non HDL Chol, Calc 157 mg/dl [facility] Comment:Non HDLC goal is 30 mg/dl above the patient's desired LDLC goal. Hours Fasting 12 hours [facility] 11/01/2011 8:48 AM CDT 11/01/2011 8:53 AM CDT us Irina Callahan MD LAB_1 Final Result Performing Organization Address City/[facility]/ZIP Co de Phone Number [facility] [address] [phone] * HIV ANTIBODY (02/18/2007) HIV 1/2 Antibody Non-Reacti ve Comment:[facility] 02/18/2007 us Irina Callahan MD LAB_1 Final Result from Last 3 Months or Most Recently Relevant to Health Maintenance Insurance BCBS OUT OF STATE Care Teams Director Motion Picture Relationship Specialty Start Date End Date Irina Callahan MD [address] [place] [address] PCP - General 07/17/07
--- OUTSIDE RECORDS SUMMARY | 2024-09-13 17:00 | XMS_ITS | Clinical Summary ---
Author Organization [facility] Address [address] [place] [id number] Care Team Providers Care Cleaning Validation Consultant Name Role Phone Edgar Mina MD Primary Care Provider [phone] Allergies No known active allergies Medications fluticasone, 50 mcg per actuation, nasal (FLONASE) 50 mcg/actuation nasal spray INHALE 1 SPRAY INTO EACH NOSTRIL ONCE DAILY 1 Bottle 0 2 Active meclizine (ANTIVERT) 25 mg tabletIndications:D izziness,Vertigo Take 1 tablet by mouth 3 times daily if needed. 30 tablet 8 Active ondansetron (ZOFRAN ODT) 4 mg disintegrating tabletIndications:N ausea Place 1 tablet on the tongue every 8 hours if needed for Nausea/Vomit ing. 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 Not on file Not on file Obstetrics History Para Term [...] Comments Blood Pressure 124/83 05/19/2018 2:41 PM CAR FILLER Pulse 101 05/19/2018 2:41 PM CAR FILLER Temperature 37.6 C (99.6 F) 05/19/2018 2:41 PM CAR FILLER Respiratory Rate 24 11/01/2010 9:18 AM CDT Oxygen Saturation 99% 05/19/2018 2:41 PM CAR FILLER Inhaled Oxygen Concentration - - Weight 114.4 kg (252 lb 3.2 oz) 05/19/2018 2:41 PM CAR FILLER Height 169 cm (5' 6.54) 05/19/2018 2:41 PM CAR FILLER Body Mass Index 40.05 05/19/2018 2:41 PM CAR FILLER Plan of Treatment Health Maintenance Due Date Last Done Comments Hepatitis C screening for ag e 18-79 1991 Pap test for age 21-65 02/18/2010 02/18/2007 Colonoscopy through age 75 2018 Lipids for age 45-75 2018 Mammogram for age 45-75 2018 Depression screening for age 12+ 06/25/2018 06/25/20 17, 09/05/2015 Tetanus booster 10/18/2018 10/18/2008 BMI (ht and wt on same day) for age 18+ 05/19/2019 05/19/2018, 06/25/2017, 09/05/2015 Pneumococcal series for age 50+ (1 of 1 - PCV) 2023 Zoster (shingles) series for age 50+ (1 of 2) 2023 COVID-19 vaccine series (3 - season) 2024 10/23/2020, 10/02/2020 Influenza Vaccine (#1) 2024 8, 03/20/2016, 03/10/2015, Additional history exists HIV for age 15-65 Completed 02/18/2007 Tdap Completed 10/18/2008 Procedures Procedure Name Priority Date/Time Associated Diagnosis Comments HUMAN RESOURCE ASSISTANT THIN PREP PAP SCREEN IMAGED Routine 02/18/2007 11:03 AM CDT Screening Malignant Neoplasms Cervix ANTI HIV 1/2 Routine 02/18/2007 8:55 AM CDT Supervision Of Other Normal from Last 3 Months or Most Recently Relevant to Health Maintenance Results * HUMAN RESOURCE ASSISTANT THIN PREP PAP SCREEN IMAGED (02/18/2007 11:03 AM CDT) CYTOLOGY CYTOPATHOLOGY REPORT [facility] Status: Final Report [id number] CLINICAL INFORMATION LMP : 12/17/06 Previous Pap Date : 08/12 Previous PAP Dx : Negative for intraepithelial lesion or malignancy. Previous [place]/bx date : None Previous Colposcopy/Bx: None Hormone Usage : None Menstrual Status : Appearance of Cervix : Not given [place]/Bx done today : No HPV Request : Reflex HPV test if PAP Dx ASCUS SPECIMEN SOURCE : Cervical/vaginal ThinPrep Vial, screening SPECIMEN ADEQUACY : Satisfactory for evaluation No endocervical component seen in a patient. INTERPRETATION/RES ULT: Negative for intraepithelial lesion or malignancy. Cytology 1st Screener : joseline Signed by: joseline This specimen was screened by the FDA approved ThinPrep Imaging System and manually reviewed. NOTE: The Pap test is a screening technique, not a diagnostic procedure. It is used primarily to screen for squamous cancers and precursor lesions. Published studies have shown that it is subject to both false negative and false positive results. The pap test should not be used as the sole means to diagnose or exclude pre-malignant and malignant lesions. COLLECTED: 02/18/07 ACCESSIONED: 02/18/07 SIGNED: 02/25/07 [facility] Cervical (Cervical) 02/18/2007 11:03 AM CDT 02/18/2007 10:37 AM CDT Hood Duque MD PATHOLOGY/CYTOLOGY Sarah l Result Performing Organization Address City/[facility]/ZIP Co de Phone Number [facility] INTERNAL ZIP [address] [address] * ANTI HIV 1/2 (02/18/2007 8:55 AM CDT) ANTI HIV 1/2 Non-reacti ve [facility] Blood specimen (specimen) BLOOD SPECIMEN / Unknown 02/18/2007 8:55 AM CDT 02/18/2007 8:53 AM CDT Hood Duque MD SEND OUTS Final R esult Performing Organization Address City/[facility]/ZIP Co de Phone Number [facility] INTERNAL ZIP [address] [address] from Last 3 Months or Most Recently Relevant to Health Maintenance Insurance [facility] NON-AR-ITS Care Teams Cleaning Validation Consultant Relationship Specialty Start Date End Date Edgar Mina MD PCP - General 04/13/09
[2024-09-13 17:02] VITALS: BP 160/98; PULSE 102; RESP 20; TEMP 36.8; O2SAT 98
--- NOTE | 2024-09-13 17:09 | ED.GENADULT ---
HPI - General Adult General Time Seen by Provider: 17:24 Date Seen: 09/13/24 Chief complaint: Lower Extremity Swelling Stated complaint: Both legs and feet swollen, flew on plane 09/12 Time Seen by Provider: 09/13/24 17:09 Source: patient, family and RN notes reviewed Mode of arrival: ambulatory Limitations: no limitations History of Present Illness HPI narrative: Shayy is a very pleasant 49-year-old female with history of hypertension currently on losartan, history of intermittent asthma who comes to the emergency room for evaluation of lower extremity edema. Patient notes that she returned from vacation yesterday on a 3 hour plane ride. She does endorse the use of ibuprofen before getting on the plane. She notes that she went to bed last night and woke up this morning and felt normal. Throughout the day she has had gradually increasing tightness and swelling of both of her lower extremities. When she got home from work she tried to put her feet up. When she took her socks off she noticed some red spots on the top of her feet. She has not had fever chills cough cold or congestion. She does note that when she walks she feels a little short of breath but states that this could be from her anxiety as she is very worried about this. She has never had a DVT in the past, has no calf tenderness at this time, has not had any hemoptysis. She denies any chest pain. Related Data Previous Rx's ?Medication ?Instructions ?Recorded albuterol sulfate 2.5 mg/3 mL 2.5 mg (3 mL) inhalation Q4-6H PRN 03/05/23 (0.083 %) solution for nebulization shortness of breath or wheezing #90 mL ipratropium 0.5 mg-albuterol 3 mg 3 ml inhalation Q4-6H PRN 10/15/23 (2.5 mg base)/3 mL nebulization shortness of breath or wheezing soln #90 mL albuterol sulfate 90 mcg/actuation 2 inh inhalation Q6H PRN shortness 12/30/23 aerosol inhaler of breath or wheezing #6.7 grams losartan 50 mg tablet 50 mg PO QDAY #90 tabs 12/30/23 omeprazole 20 mg capsule,delayed 20 mg PO QDAY #90 caps 04/01/24 release bupropion HCl 150 mg 24 hr tablet, 150 mg PO QAM #30 tabs 06/15/24 extended release (Wellbutrin XL) estradiol 0.01% (0.1 mg/gram) 1 appful vaginal 2XW #42.5 grams 06/15/24 vaginal cream lisdexamfetamine 10 mg capsule 10 mg PO QAM #30 caps 06/22/24 (Vyvanse) topiramate 25 mg tablet (Topamax) 25 mg PO QHS #90 tabs 06/23/24 furosemide 20 mg tablet (Lasix) 20 mg PO QAM #1 tab 09/13/24 Allergies Allergy/AdvReac Type Severity Reaction Status Date / Time No Known Drug Allergies Allergy Verified 06/15/24 10:15 Review of Systems Status of ROS: Reports: 10 or more systems reviewed and unremarkable except as noted in History and below Const: Denies: fever or chills Eyes: Denies: change in vision ENMT: Denies: throat pain, neck pain or nasal congestion Cardio: Reports: edema and swelling of feet/ankles; Denies: chest pain, palpitations, lightheadedness or shortness of breath with exertion Resp: Denies: shortness of breath or cough GI: Denies: abdominal pain, nausea or vomiting : Denies: painful urination or urinary frequency Musculo: Reports: extremity swelling; Denies: back pain, neck pain or extremity pain Integ/Breast: Reports: rash Neuro: Denies: headache or numbness in [facility] History History of major depression (2008) ?Z86.59 - Personal history of other mental and behavioral disorders (ICD-10) Surgical History History of vaginal delivery History of hysterectomy (~2017) ?Z90.710 - Acquired absence of both cervix and uterus (ICD-10) Family History Mother Type 2 diabetes mellitus Thyroid disease Anxiety Depression Myocardial infarction, Onset Age: 68 Paternal Grandmother Breast cancer, Onset Age: 75 Maternal Grandfather Coronary artery disease Maternal Grandmother Breast cancer Aunt Colon cancer Uncle Cystic fibrosis Social History Narrative: ,[facility] [place], 2 children Exercise walking twice a week 2 miles Nonsmoker 1 alcoholic drink a week What is your current living situation?: I presently have a place to live Problems where you live: no known problems In the past 12 months, utilities in danger of being shut off: no In the past 12 mos, have been you worried that your food would run out before you had money to buy more?: never true In the past 12 mos, the food you bought just didn't last and you didn't have money to buy more?: never true Smoking Status: Never smoker Do you use any of these nicotine containing products: None Second hand tobacco smoke exposure: No How often do you have a drink containing alcohol: never How often do you have six or more drinks on one occasion: Never AUDIT-C Alcohol total score: 0 Non-prescribed substance use: denies use How often does anyone, including family, friends and others, physically hurt you: decline to answer How often does anyone, including family, friends and others, insult or talk down to you: decline to answer How often does anyone, including family, friends and others, threaten you with harm: decline to answer How often does anyone, including family, friends and others, scream or curse at you: decline to answer service: No Exam Narrative: Exam Narrative: Alert and oriented. present and very loving and supportive. EOM is full. Face symmetrical. Heart with a regular rate and rhythm for this examiner. Lungs are clear in all lung leonard especially at the bases. There is no evidence of crackles or wheezing. Abdomen soft. Lower extremities show 2+ peripheral edema. On the bilateral foot dorsum she has non blanchable petechiae in the mid aspect of the foot. This does appear limited to this area does not extend onto the M TP or up on the ankle. There is also associated lines from her sock or possibly her shoes. No calf tenderness and Homans sign is negative. Const: Vital Signs, click to edit/add: Vital Signs - 24 hr 09/13/24 17:02 Temperature 98.3 F Pulse Rate [Pulse Oximeter] 102 H Respiratory Rate 20 Blood Pressure [Ri ght Upper Arm] 160/98 H Pulse Oximetry 98 Oxygen Delivery Me thod Room Air Documenting provider has reviewed patient's vital signs: yes Course Course ED Course: Differential diagnosis includes but is not limited to fluid retention caused by air pressure changes of flight as well as NSAID use, DVT although less likely that this would be bilateral, PE is in the differential diagnosis but patient has no history of DVT, has bilateral lower extremity edema and has normal oxygen levels. heart failure although patient felt well last night. She is not reporting any chest pain. Electrolyte imbalance. Given these findings I did offer patient various plans to assess her chief complaint. My recommendation is Doppler of the lower extremities, basic panel check and administration of Lasix. I did offer full cardiac workup then she has declined this. I did offer also just using Lasix and follow up if not improving. It appears that she would like to go ahead with the Doppler, check of electrolytes and treatment with diuretics. I do think that the petechiae noted on the dorsum of the feet limited to this area is likely cause by the swelling with some sort of pressure phenomenon from socks or shoes. Petechiae do not appear anywhere else on the body. Lung sounds are clear And therefore do not feel we need to pursue chest x-ray. No chest pain. Pretest probability is low for PE. Reevaluation(s) Reevaluation #1: Patient is stable. Has urinated 1 time. Vital Signs Vital signs: Initial Vital Signs Temperature 98.3 F 09/13/24 17:02 Temperature Source Temporal Artery Scan 09/13/24 17:02 Pulse Rate 102 H 09/13/24 17:02 Respiratory Rate 20 09/13/24 17:02 Blood Pressure 160/98 H 09/13/24 17:02 Blood Pressure Mean 118 H 09/13/24 17:02 Pulse Oximetry 98 09/13/24 17:02 Oxygen Delivery Method Room Air 09/13/24 17:02 Vital Signs Temperature 98.3 F 09/13/24 17:02 Pulse Rate 102 H 09/13/24 17:02 Respiratory Rate 20 09/13/24 17:02 Blood Pressure 160/98 H 09/13/24 17:02 Pulse Oximetry 98 09/13/24 17:02 Oxygen Delivery Method Room Air 09/13/24 17:02 Temperature 98.3 F 09/13/24 17:02 Pulse Rate 102 H 09/13/24 17:02 Respiratory Rate 20 09/13/24 17:02 Blood Pressure 160/98 H 09/13/24 17:02 Pulse Oximetry 98 09/13/24 17:02 Oxygen Delivery Method Room Air 09/13/24 17:02 Medications Administered Medications: Discontinued Medications Generic Name Dose Route Start Last Admin Trade Name Phuc PRN Reason Stop Dose Admin Furosemide 20 mg 09/13/24 17:30 09/13/24 17:37 Furosemide 20 Mg Tablet PO 09/13/24 17:31 20 mg ONCE ONE Administration Medical Decision Making MDM Narrative Medical decision making narrative: 1. Lower extremity edema-likely from a combination of ibuprofen use with recent flight. There is no evidence of DVT. Electrolytes appear to be normal with a potassium of 3.9. Patient was given Lasix 20 mg p.o. in the ED. Will repeat dose tomorrow morning and this was sent to the pharmacy. Recommend elevating legs as much as possible and using compression stockings on future flights. 2. Disposition-home at this time. Return for worsening symptoms such as chest pain. Pretest probability for PE very low. He combined with the negative lower extremity Doppler I do think that there is minimal chance of PE. Also do not think this is congestive heart failure given the recent history of flight and NSAID use. I suspect that this will resolve within the next 24-48 hours. Patient is advised to increase potassium intake. Medical Records Medical records reviewed: Yes I reviewed the patient's medical records Lab Data Labs: Lab Results 09/13/24 Range/Units 17:32 Sodium 138 (135-149) mmol/L Potassium 3.9 (3.6-5.1) mmol/L Chloride 103 (96-114) mmol/L Carbon Dioxide 25 (20-32) mmol/L Anion Gap 10 (7-15) mEq/L BUN 17 (7-30) mg/dL Creatinine 0.9 (0.5-1.5) mg/dL Estimated GFR 77 ml/min Glucose 95 (60-115) mg/dL Calcium 9.1 (8.4-10.6) mg/dL Imaging Data Venous US: Attestation: I have reviewed the pertinent imaging results. Radiologist's impression: Deep veins: Sonographic imaging demonstrates the bilateral common femoral, deep femoral, superficial femoral, popliteal, peroneal, and posterior tibial veins to be fully compressible with normal color Doppler blood flow. Superficial veins: Greater saphenous veins are fully compressible. No popliteal cyst. IMPRESSION: No evidence of deep venous thrombosis within the evaluated veins of the bilateral lower extremities. Discharge Plan Discharge Clinical Impression: Fluid retention in legs Patient Disposition: Home, Self-Care Condition: Improved Instructions: Leg Edema (ED) Additional Instructions: recommend repeating dose of Lasix tomorrow morning. Your potassium level is 3.9 and technically within normal limits. I would advise you to eat a banana tonight and tomorrow as you will lose potassium with the diuretic that we gave you. Recommend additional dose of Lasix tomorrow morning. Prescription sent to your pharmacy. Your other electrolytes within normal limits. Try to keep your legs elevated tonight. Suggest the use of compression stockings for For your next plain trip Follow-up with your primary clinic for ongoing issues. Return to the emergency room for worsening symptoms. Prescriptions: New furosemide [Lasix] 20 mg tablet 20 mg PO QAM Qty: 1 0RF No Action ipratropium-albuterol 0.5 mg-3 mg(2.5 mg base)/3 mL solution for nebulization 3 ml inhalation Q4-6H PRN (Reason: shortness of breath or wheezing) Qty: 90 1RF estradiol 0.01 % (0.1 mg/gram) cream 1 appful vaginal 2XW Qty: 42.5 12RF bupropion HCl [Wellbutrin XL] 150 mg tablet extended release 24 hr 150 mg PO QAM Qty: 30 3RF lisdexamfetamine [Vyvanse] 10 mg capsule 10 mg PO QAM Qty: 30 0RF albuterol sulfate 2.5 mg /3 mL (0.083 %) solution for nebulization 2.5 mg inhalation Q4-6H PRN (Reason: shortness of breath or wheezing) Qty: 90 1RF losartan 50 mg tablet 50 mg PO QDAY Qty: 90 3RF albuterol sulfate 90 mcg/actuation HFA aerosol inhaler 2 inh inhalation Q6H PRN (Reason: shortness of breath or wheezing) Qty: 6.7 3RF omeprazole 20 mg capsule,delayed release(DR/EC) 20 mg PO QDAY Qty: 90 2RF topiramate [Topamax] 25 mg tablet 25 mg PO QHS Qty: 90 3RF Follow Up/Referrals: Kaycee Yu MD [Primary Care Provider] - Stand Alone Forms: MyHealth Info Instructions
[2024-09-13] MEDS: FUROSEMIDE 20 MG TABLET PO (17:37)
--- OUTSIDE RECORDS SUMMARY | 2024-09-13 17:45 | XMS_ITS | Clinical Summary ---
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 Not on file Not [...] Comments Blood Pressure 124/83 05/19/2018 2:41 PM GORE INSERTER Pulse 101 05/19/2018 2:41 PM GORE INSERTER Temperature 37.6 C (99.6 F) 05/19/2018 2:41 PM GORE INSERTER Respiratory Rate 24 11/01/2010 9:18 AM CDT Oxygen Saturation 99% 05/19/2018 2:41 PM GORE INSERTER Inhaled Oxygen Concentration - - Weight 114.4 kg (252 lb 3.2 oz) 05/19/2018 2:41 PM GORE INSERTER Height 169 cm (5' 6.54) 05/19/2018 2:41 PM GORE INSERTER Body Mass Index 40.05 05/19/2018 2:41 PM GORE INSERTER Plan of Treatment Health Maintenance Due Date [...] Procedure Name Priority Date/Time Associated Diagnosis Comments CAR RESTORER THIN PREP PAP SCREEN IMAGED Routine 02/18/2007 11:03 AM CDT Screening Malignant Neoplasms Cervix ANTI HIV 1/2 Routine 02/18/2007 8:55 AM CDT Supervision Of Other Normal from Last 3 Months or Most Recently Relevant to Health Maintenance Results * CAR RESTORER THIN PREP PAP SCREEN IMAGED (02/18/2007 11:03 AM CDT) CYTOLOGY CYTOPATHOLOGY REPORT [facility] Status: Final Report [id number] CLINICAL INFORMATION LMP : 12/17/06 Previous Pap Date : 08/12 Previous PAP Dx : Negative for intraepithelial lesion or malignancy. Previous [place]/bx date : None Previous Colposcopy/Bx: None Hormone Usage : None Menstrual Status : Appearance of Cervix : Not given [place]/Bx done today : No HPV Request : [...] lesions. COLLECTED: 02/18/07 ACCESSIONED: 02/18/07 SIGNED: 02/25/07 [facility] Cervical (Cervical) 02/18/2007 11:03 AM CDT 02/18/2007 10:37 AM CDT Hood Duque MD PATHOLOGY/CYTOLOGY Sarah l Result Performing Organization Address City/[facility]/ZIP Co de Phone Number [facility] INTERNAL ZIP [address] [address] * ANTI HIV 1/2 (02/18/2007 8:55 AM CDT) ANTI HIV 1/2 Non-reacti ve [facility] Blood specimen (specimen) BLOOD SPECIMEN / Unknown 02/18/2007 8:55 AM CDT 02/18/2007 8:53 AM CDT Hood Duque MD SEND OUTS Final R esult Performing Organization Address City/[facility]/ZIP Co de Phone Number [facility] INTERNAL ZIP [address] [address] from Last 3 Months or Most Recently Relevant to Health Maintenance Insurance [facility] [place] Care Teams Security Intelligence Analyst Relationship Specialty Start Date End Date Edgar Mina MD PCP - General 04/13/09
--- OUTSIDE RECORDS SUMMARY | 2024-09-13 17:45 | XMS_ITS | Clinical Summary ---
Author Organization [employer] Address [address] [place] [address] Care Team Providers Care Information Technology Administrator Name Role Phone Edgar Mina MD Primary Care Provider [phone] Allergies No known active allergies Medications FLINTSTONES [...] History Relation Comments C.A.D. Maternal Grandfather of [place] Cardiovascular Maternal Grandfather Heart Disease Maternal Grandfather of [place] Depression Maternal Grandmother Alcohol/Drug Maternal Uncle ETOH Anesthesia Reaction Mother Complication s after cataract surgery with anesthesia Arthritis Mother Rheumatoid arthr itis. Depression Mother Has been on Proz ac in the past. 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 Not on file N ot on file Last Filed Vital Signs Vital Sign Reading Time Taken Comments Blood Pressure 131/91 05/25/2018 2:53 PM RECORD FILING CLERK Pulse 103 05/25/2018 11:16 AM RECORD FILING CLERK Temperature 36.7 C (98.1 F) 05/25/2018 11:16 AM RECORD FILING CLERK Respiratory Rate 16 05/25/2018 2:53 PM RECORD FILING CLERK Oxygen Saturation 97% 05/25/2018 2:53 PM RECORD FILING CLERK Inhaled Oxygen Concentration - - Weight 108.4 [...] BASIC METABOLIC PANEL STAT 05/25/2018 11:19 AM RECORD FILING CLERK HCL GLUCOSE; 1 HR POST Routine 01/14/2006 9:45 AM CDT Supervis Other Normal Preg TRIPLE SCREEN Routine 10/31/2005 8:32 AM CDT Suprf High Risk Nec HCL PAP THIN LAYER SCREEN Routine 09/17/2005 12:00 AM RECORD FILING CLERK Suprf High Risk Nec HCL HIV 1 & 2 ANTIBODY Routine 08/26/2005 9:22 AM RECORD FILING CLERK Supervis Normal 1st Preg from Last 3 Months or Most Recently Relevant to Health Maintenance Results * Basic metabolic panel (05/25/2018 11:19 AM RECORD FILING CLERK) Sodium 137 133 - 144 mmol/L 05/25/2018 11:45 AM [facility] Potassium 4.2 3.4 - 5.3 mmol/L 05/25/2018 11:45 AM [facility] Chloride 105 94 - 109 mmol/L 05/25/2018 11:45 AM [facility] Carbon Dioxide 27 20 - 32 mmol/L 05/25/2018 11:45 AM [facility] Anion Gap 5 3 - 14 mmol/L 05/25/2018 11:45 AM [facility] Glucose 95 70 - 99 mg/dL 05/25/2018 11:45 AM [facility] Urea Nitrogen 17 7 - 30 mg/dL 05/25/2018 11:45 AM [facility] Creatinine 0.82 0.52 - 1.04 mg/dL 05/25/2018 11:45 AM [facility] GFR Estimate 75 >60 mL/min/1.7 m2 05/25/2018 11:45 AM [facility] Comment:Non GFR Calc GFR Estimate If Black >90 >60 mL/min/1.7 m2 05/25/2018 11:45 AM [facility] Comment: GFR Calc Calcium 9.1 8.5 - 10.1 mg/dL 05/25/2018 11:45 AM [facility] Blood specimen (specimen) 05/25/2018 11:19 AM [facility] 05/25/2018 11:20 AM [facility] us Aarti Chua MD LAB - BLOOD ORDERABLES F inal Result [facility] [place] [address], [facility] [phone] * GLUCOSE; 1 HR POST (01/14/2006 9:45 AM CDT) Glu Gest Screen 1hr 50g 128 60 - 140 mg/dL [facility] 01/14/2006 9:45 AM CDT 01/14/2006 9:47 AM CDT us Latrice Rodriguez MD LABORATORY Final Result [facility] [address] [place] [address] * TRIPLE SCREEN (10/31/2005 8:32 AM CDT) Pt Date of 2006 [facility] Patient Weight 220 LBS [facility] Due Date 04/20/2006 [facility] Dating Method LMP [facility] Last Mens Period 07/14/2005 [facility] Twins NO [facility] Race of Mother [facility] Diabetic at Conception NO [facility] Fam History Of NTD NO [facility] Doctor's Name CEM RODRIGUEZ Bere [facility] Alpha Feto Protein 30 [facility] Comment:Unit: ng/mL MoM for AFP 1.43 [facility] BHCG [address] [facility] Comment:Unit: IU/L MoM For HCG 0.96 [facility] Estriol 0.89 [facility] Comment:Unit: ng/mL MoM uE3 1.27 [facility] AFP Interpretation NORMAL (Note) Maternal Serum AFP/hCG/uE3 (Triple) Screen NORMAL SCREEN Risks Pre-test Post-test (Cutoff) Open NTD 1 in 900 1 in 4300 Down Syndrome 1 in 430 1 in 3400 (1 in 190) Trisomy 18 1 in 1700 <1 in [address] (1 in 100) Assuming the patient information listed is correct, this maternal serum screen is within normal limits. The interpretation is based on maternal age, gestational age, maternal weight, the presence or absence of insulin requiring maternal diabetes, maternal race, and number of fetuses, if known. This test is performed pursuant to a licensing agreement with [employer]. [facility] Specimen Iteration First [facility] Maternal Age 33.2 M [facility] Comment:Unit: yr Dating LNMP [facility] Estimated Due Date [facility] Gest Age Exact 15.57 M [facility] Comment:Unit: Weeks Patient Weight 220 M [facility] Comment:Unit: lb Insulin Diabetic No [facility] Fam History of NTD No [facility] Maternal Race WHITE M [facility] Num of Fetuses 1.0 (Note) The above 17 tests were performed at: [employer] [address] [email or web address] [facility] 10/31/2005 8:32 AM CDT 10/31/2005 8:35 AM CDT us Latrice Rodriguez MD LABORATORY Final Result [facility] [address] [facility] [place], [place] [id number] [place] [address] * Pap Smear [G0123.000] (09/17/2005 12:00 AM RECORD FILING CLERK) PAP RAHUL Del Toro Report Patient Name: HARI OLIVARES MR#: [id number] Specimen #: [id number] Collected: 09/17/2005 Received: 09/17/2005 Reported: 09/19/2005 11:13 [...] OFELIA Chandler (ASCP) Processed and screened at [facility] CLINICAL HISTORY: LMP: 07/14/05 , TESTING LAB LOCATION: [facility], [address] [place] [id number] COLLECTION SITE: Client: [facility] Location: [facility] (P) [facility] 09/17/2005 09/17/2005 3:0 8 PM RECORD FILING CLERK Latrice Rodriguez MD LABORATORY Final Result Performing Organization Address City/[facility]/ZIP Co de Phone Number [facility] * HIV-1/HIV-2 AB, EIA, W/WB RFLX [[id number]] (08/26/2005 9:22 AM RECORD FILING CLERK) HIV 1&2 Antibody Negative NEG [facility] 08/26/2005 9:22 AM RECORD FILING CLERK 08/26/2005 9:27 AM RECORD FILING CLERK Latrice Rodriguez MD LABORATORY Final Result [facility] [address] [place] [address] from Last 3 Months or Most Recently Relevant to Health Maintenance Insurance BCBS OUT OF STATE Care Teams Information Technology Administrator Relationship Specialty Start Date End Date Edgar Mina MD PCP - General Family Medicine - Sports Medicine 05/25/18
--- OUTSIDE RECORDS SUMMARY | 2024-09-13 17:45 | XMS_ITS | Clinical Summary ---
Author Organization [facility] Address [address], [place] [address] Care Team Providers Care Neonatal Social Worker Name Role Phone Irina Callahan MD Primary Care Provider [phone] Source Comments You are receiving this document [...] for each transition of care or referral. [facility] Medications MULTIPLE VITAMIN OR None Entered Active ergocalciferol (VITAMIN D, ERGOCALCIFEROL ,) 26634 UNIT capsule Take 1 Cap by mouth [...] 2014 NILM, HPV negative Plan: Co-test 11/2019 [facility] Menstrual migraine 11/06/2011 Vitamin D deficiency 08/10/2010 Overview (08/10/2010): In the 9 range in 08/2010. PMS (premenstrual syndrome) 08/08/2010 Overview (08/08/2010): Anger Obesity 10/18/2008 Resolved Problems Problem Noted Date Diagnosed Date Resolved Date Depression, major, recurrent , in complete remission 11/06/2011 11/11/2014 Major depressive disorder, s raf episode, in remission 10/20/2008 11/06/2011 Overview (04/06/2015): [facility] Encounter for supervision of normal in multigravida 07/24/2007 10/18/2008 Immunizations Immunization Administration Dates Next Due Flu Vac (3+ yrs) 08/08/2010 Influenza IIV4 (Quadrivalent) 0.5mL (21146) 03/07 Tdap 10/18/2008 Family History Medical History [...] CDT Respiratory Rate 16 07/31/2016 9:16 AM GATE ATTENDANT Oxygen Saturation - - Inhaled Oxygen Concentration [...] (11/11/2014 9:41 AM CDT) Cytology, Pap (NOTE) Quarrying Manager Cytology Report Patient Name: HARI QUINTANILLA Taken: 11/11/2014 Received: 11/14/2014 Reported: 11/17/2014 Physician(s): IRINA CALLAHAN ([id number]) Source of Specimen Pap Test, Routine Cervical/Endocervi jeremy: Specimen Adequacy Satisfactory for evaluation. Endocervical component present. Final Cytologic Interpretation/Res ult NEGATIVE FOR INTRAEPITHELIAL LESION OR MALIGNANCY (NILM) Electronically Signed Out By OFELIA Davila (ASCP) OFELIA Worthington (ASCP) OFELIA Davila (ASCP) Pap Smear History Date of Last Menstrual Period: No LMP recorded Microscopic Description Microscopic examination is performed. [facility] Department of Pathology [address] [place] [id number] [facility] 11/11/2014 9:41 AM CDT 11/14/2014 7:25 PM CDT us Irina Callahan MD LAB_1 Final Result [facility] [phone] * (ABNORMAL) LIPID PANEL AND DIRECT LDL(IF NEEDED) (11/01/2011 8:48 AM CDT) Cholesterol 204(H) 0 - 199 mg/dl [facility] Triglyceride 155(H) 0 - 149 mg/dl [facility] HDL 47 >40 mg/dl [facility] LDL, Calc. 126 0 - 129 mg/dl [facility] Non HDL Chol, Calc 157 mg/dl [facility] Comment:Non HDLC goal is 30 mg/dl above the patient's desired LDLC goal. Hours Fasting 12 hours [facility] 11/01/2011 8:48 AM CDT 11/01/2011 8:53 AM CDT us Irina Callahan MD LAB_1 Final Result Performing Organization Address City/[facility]/ZIP Co de Phone Number [facility] [address] [phone] * HIV ANTIBODY (02/18/2007) HIV 1/2 Antibody Non-Reacti ve Comment:[facility] 02/18/2007 us Irina Callahan MD LAB_1 Final Result from Last 3 Months or Most Recently Relevant to Health Maintenance Insurance BCBS OUT OF STATE Care Teams Neonatal Social Worker Relationship Specialty Start Date End Date Irina Callahan MD [address] [place] [address] PCP - General 07/17/07
--- OUTSIDE RECORDS SUMMARY | 2024-09-13 17:45 | XMS_ITS | Encounter Summary ---
Author Organization [facility] Address [address] [place] [address] Care Team Providers Care Information Security Name Role Phone Irina Callahan MD Primary Care Provider [phone] Encounter Details Date Type Department Care Team [...] documented as of this encounter Care Teams Information Security Relationship Specialty Start Date End Date Irina Callahan MD [address] [place] [address] PCP - General 07/17/07 documented as of this encounter
[2024-09-13 18:08] LABS: Chloride* 103 mmol/L (96-114); Sodium* 138 mmol/L (135-149)
[2024-09-13 18:09] LABS: Potassium* 3.9 mmol/L (3.6-5.1)
[2024-09-13 18:12] LABS: Anion Gap 10 mEq/L (7-15); Blood Urea Nitrogen* 17 mg/dL (7-30); Calcium* 9.1 mg/dL (8.4-10.6); Carbon Dioxide* 25 mmol/L (20-32); Creatinine* 0.9 mg/dL (0.5-1.5); Estimated Glomerular Filt Rate 77 ml/min; Glucose* 95 mg/dL (60-115)
== END 2024-09-13 18:57 | disposition home or self-care (01) ==
PROVIDERS: Emergency Provider Family Medicine; PCP Family Medicine
DX: R60.0 Localized edema (principal)
CPT/HCPCS: 36415; 80048; 93970; 99284; A9270

== ENCOUNTER 2024-10-21 15:38 | Outpatient (CLI) | payer BC, SELFPAY ==
--- NOTE | 2024-10-21 16:00 | CRLHL7_ITS ---
For Patients: As a result of the Cures Act, medical imaging exams and procedure reports are released immediately into your electronic medical record. You may view this report before your referring provider. If you have questions, please contact your health care provider. Indication: Localized swelling, mass and lump, neck Technique: Grayscale ultrasound of the right medial clavicle soft tissues performed. Comparison: None Findings: No fluid collection or mass. No adenopathy. Impression: No sonographic abnormality. Dictated by Gurvinder Escobar MD @ 10/22/2024 10:10:32 AM (Electronically Signed)
== END 2024-10-21 15:39 | disposition home or self-care (01) ==
LOC: US 15:39
PROVIDERS: PCP Family Medicine; Visit Provider Family Medicine
DX: R22.1 Localized swelling, mass and lump, neck (principal)
CPT/HCPCS: 76536

== ENCOUNTER 2025-01-17 16:53 | Outpatient (CLI) | payer BC, SELFPAY | END 2025-01-17 16:54 | disposition home or self-care (01) | PROVIDERS: PCP Family Medicine; Visit Provider Family Medicine | DX: Z00.00 Encounter for general adult medical examination without abnormal findings (principal); M13.80 Other specified arthritis, unspecified site; I10 Essential (primary) hypertension; E66.01 Morbid (severe) obesity due to excess calories; Z11.59 Encounter for screening for other viral diseases | CPT/HCPCS: 80053; 80061; 82043; 82570; 86038; 86200; 86431; 86803 ==

== ENCOUNTER 2025-05-13 11:10 | Outpatient (CLI) | payer BC, SELFPAY ==
--- NOTE | 2025-05-13 11:30 | CRLHL7_ITS ---
For Patients: As a result of the Century Cures Act, medical imaging exams and procedure reports are released immediately into your electronic medical record. You may view this report before your referring provider. If you have questions, please contact your health care provider. INDICATION: BILATERAL SCREENING MAMMOGRAM, ASYMPTOMATIC 50 Y/O FEMALE COMPARISON: 04/21/2024, 04/15/2023 TECHNIQUE: Digital mammogram in CC and MLO projections including computer-aided detection (CAD) and tomosynthesis. BREAST COMPOSITION: The breasts are almost entirely fatty. FINDINGS: No suspicious findings. ASSESSMENT: BI-RADS 1 Negative RECOMMENDATION: Annual screening mammogram. A lay language report of this examination will be provided to the patient. Dictated by: Gurvinder Escobar MD @ 05/13/2025 11:46:30 (Electronically Signed)
== END 2025-05-13 11:11 | disposition home or self-care (01) ==
LOC: MAMMO 11:11
PROVIDERS: PCP Family Medicine; Visit Provider Family Medicine
DX: Z12.31 Encounter for screening mammogram for malignant neoplasm of breast (principal)
CPT/HCPCS: 77063; 77067